=== PATIENT | female | born 1960 | race Caucasian/White ===

== ENCOUNTER → 2019-09-06 | Outpatient (REF) | payer OTHER ==
[~2019-09-06] MED LIST: ATOR1TAB21 PO; CALC-190 PO; GABA-1171 PO; IPRA0.00; LISI-542 PO; METF-838 PO; PANT40TA29 PO; PARO40TA2 PO; QVAR80AE8 INH; RITA10TA PO; [UNRECOGNIZED DRUG - CODE] PO
[2019-11-24 08:29] LABS: FATS NEUTRAL SEE SEPARATE REPORT; FATS TOTAL SEE SEPARATE REPORT; PANCREATIC ELASTASE STOOL SEE SEPARATE REPORT
== END ==
LOC: M LAB REF 12:22
PROVIDERS: ATTEND Physician Assistant Medical
DX: R19.4 Change in bowel habit (principal)

== ENCOUNTER → 2019-09-07 | Outpatient (CLI) | payer OTHER | LOC: M LABSMTC 11:48 | PROVIDERS: ATTEND Anesthesiology | DX: Z01.818 Encounter for other preprocedural examination (principal); Z11.59 Encounter for screening for other viral diseases | CPT/HCPCS: C9803; U0003 ==

== ENCOUNTER → 2020-06-13 | Outpatient (CLI) | payer OTHER ==
[~2020-06-13] MED LIST changes: -LISI-542 PO; +LISI-898 PO
--- NOTE | 2020-06-15 02:31 | ECWPNPC ---
PATIENT NAME: FRANCK GUTIÉRREZ : 1960 GENDER: FEMALE VISIT DATE: 06/13/2020 DISCHARGE DATE: 06/13/20 1404 VISIT LOCKED DATE TIME: PHYSICIAN: DEYSI YO RESOURCE: DEYSI YO REASON FOR APPOINTMENT 1. NECK/BACK HISTORY OF PRESENT ILLNESS GENERAL: 59-YEAR-OLD FEMALE IN FOR INITIAL PAIN CONSULT REGARDING NECK AND BACK PAIN THAT HAS BEEN PRESENT FOR SEVERAL YEARS. PATIENT DENIES MEDICATIONS AND/OR INJECTIONS THAT HELPED IN THE PAST. SHE DOES ADMIT THAT THE PAIN STARTED WHEN SHE WAS ON A RUCK [employer]IL IN THE [employer] WHEN SHE WAS YOUNGER. FALL RISK SCREENING: SCREENING : NO FALLS REPORTED IN THE LAST YEAR. PAIN SCREENING: PATIENT HAS A COMPLAINT OF ACUTE OR CHRONIC PAIN :YES LOCATION OF PAIN:NECK, LOW BACK DOES HABE CONTROL IN FINGER INTO THE RIGTH ARM INTENSITY OF PAIN (SCALE OF 1 TO 10):8 WHAT DOES YOUR PAIN FEEL LIKE:ACHING, THROBBING DURATION:CONTINOUS, CONSTANT, ALL DAY PAIN IS INCREASED BY:ACTIVITIES PAIN IS DECREASED BY:USE OF PAIN MEDICATIONS, OTHERS RESTING NURSING NOTE: - - -. PAIN CENTER INTAKE QUESTIONS: DO YOU HAVE A HISTORY OF MRSA? :NO DO YOU TAKE A BLOOD THINNERS? :NO DO YOU HAVE ANY BLEEDING DISORDERS? :NO ANY NEW NUMBNESS OR WEAKNESS IN YOUR LEGS OR ARMS? :YES PAIN GOES DOWN RIGHT ARM, ALSO PAIN IN RIGHT HIP ANY PACEMAKER,DEFIBRILLATOR, OR DORSAL COLUMN STIMULATOR? :NO DO YOU HAVE ANY RASHES OR OPEN SORES? :NO ARE YOU ALLERGIC TO IV DYE? :NO ARE YOU DIABETIC? :YES TYPE 2 ANY NEW PROBLEMS WITH YOUR MEDICATIONS? :NO HAVE YOU RECEIVED A VACCINE IN THE PAST 30 DAYS? :YES 2ND COVID 06/07/2020 DO YOU PLAN TO RECEIVE A VACCINE IN THE NEXT 21 DAYS? :NO DO YOU NEED ANY PRESCRIPTION? :NO DO YOU TAKE ANY IMMUNOSUPPRESSIVE MEDICATIONS? :NO CURRENT MEDICATIONS TAKING ZOFRAN 4 MG TABLET 1 TABLET ORALLY ONCE A DAY TAKING LISINOPRIL 10 MG TABLET 1 TABLET ORALLY ONCE A DAY TAKING ATORVASTATIN CALCIUM 20 MG TABLET 1 TABLET ORALLY ONCE A DAY TAKING LISINOPRIL 5 MG TABLET TAKE ONE TABLET BY MOUTH EVERY DAY ORAL TAKING METFORMIN HCL ER 500 MG TABLET EXTENDED RELEASE 24 HOUR TAKE THREE TABLETS BY MOUTH EVERY DAY ORAL TAKING METOCLOPRAMIDE HCL 5 MG TABLET TAKE ONE TABLET BY MOUTH THREE TIMES A DAY TAKE 30 MINUTES PRIOR TO MEALS ORAL TAKING OYSTER SHELL CALCIUM/D 500-200 MG-UNIT TABLET TAKE TWO TABLETS BY MOUTH EVERY DAY ORAL TAKING PANTOPRAZOLE SODIUM 40 MG TABLET DELAYED RELEASE TAKE ONE TABLET BY MOUTH EVERY DAY BEFORE FIRST MEAL OF THE DAY ORAL TAKING PAROXETINE HCL 40 MG TABLET TAKE ONE TABLET BY MOUTH EVERY DAY ORAL TAKING VITAMIN B-12 1000 MCG TABLET TAKE ONE TABLET BY MOUTH EVERY DAY ORAL TAKING GABAPENTIN 400 MG CAPSULE TAKE ONE CAPSULE BY MOUTH THREE TIMES A DAY ORAL TAKING METHYLPHENIDATE HCL 10 MG TABLET (SCHEDULE II DRUG) TAKE ONE TABLET BY MOUTH EVERY MORNING AND ONE TABLET EARLY AFTERNOON MAXIMUM DAILY DOSE TWO TABLETS ORAL TAKING ARNUITY ELLIPTA 100 MCG/ACT AEROSOL POWDER BREATH ACTIVATED USE 1 INHALATION ONCE DAILY INHALATION TAKING SENNA 8.6 MG TABLET TAKE TWO TABLETS BY MOUTH EVERY DAY AT BEDTIME STOP IF HAVING DIARRHEA ORAL TAKING FREESTYLE LITE TEST - STRIP TEST GLUCOSE THREE TIMES A DAY IN VITRO TAKING ZONISAMIDE 50 MG CAPSULE 1 CAPSULE ORALLY TWICE A DAY TAKING TYLENOL 8 HOUR 650 MG TABLET EXTENDED RELEASE 2 TABLETS NEEDED ORALLY EVERY 8 HRS NOT-TAKING NEURONTIN 400 MG CAPSULE 1 CAPSULE ORALLY ONCE A DAY PAST MEDICAL HISTORY PAIN IN FOREARM HAND PAIN LUMBOSACRAL RADICULOPATHY CAPAL TUNNEL SYNDROME CHRONIC LOW BACK PAIN MIRGAINE WITHOUT AURA HYPERTENSION TYPE DIABETES ASTHMA COPD MIRGANIE WITH RS ALLERGIES RED ISAAC: DYSPNEA - SIDE EFFECTS ASPIRN: DYSPNEA - SIDE EFFECTS CODINE: DYSPNEA - SIDE EFFECTS PENICILLIN: DYSPNEA - SIDE EFFECTS OXYCODONE: NAUSEA/VOMITING - SIDE EFFECTS SURGICAL HISTORY TONSILLECTOMY 1965 CANCER CERVCAL 1987 CANCER 1977 APPENDIX REMOVED 1979 GALLBADDER 2019 CATARACT RIGHT AND LEFT EYES 2019 ALL TEETH REMOVED 3 YEARS AGO FAMILY HISTORY FATHER: ALIVE MOTHER: ALIVE SON(S): ALIVE DAUGHTER(S): ALIVE 1 BROTHER(S) , 7 SISTER(S) - HEALTHY. 3 SON(S) , 1 DAUGHTER(S) - HEALTHY. SOCIAL HISTORY GENERAL: TOBACCO USE ARE YOU A:NONSMOKER LATEX QUESTIONNAIRE LATEX ALLERGY : HAVE YOU EVER DEVELOPED ANY TYPE OF REACTION AFTER HANDLING LATEX PRODUCTS SUCH RUBBER GLOVES, CONDOMS, DIAPHRAGMS, BALLOONS, SOCKS, OR UNDERWEAR?NO LATEX ALLERGY : HAVE YOU EVER DEVELOPED ANY TYPE OF REACTION DURING OR AFTER DENTAL APPOINTMENT, VAGINAL/RECTAL EXAMINATION, SURGICAL PROCEDURE, OR ANY OTHER EXPOSURE?NO LATEX RISK : HAVE YOU EVER HAD ANY DIFFICULTY BREATHING OR HIVES AFTER EATING OR HANDLING ANY FRUITS, OR VEGETABLES; SUCH KIWI, BANANAS, STONE FRUITS, OR CHESTNUTSNO LATEX RISK : DO YOU HAVE A PREVIOUS PERSONAL HISTORY OF MORE THAN NINE SURGERIES, SPINA BIFIDA, OR REPEATED CATHERIZATIONS? NO LATEX RISK : ARE YOU FREQUENTLY EXPOSED TO LATEX PRODUCTS IN YOUR OCCUPATION?YES DATE ASKED : 06/13/2020 ALCOHOL USE: NO. RECREATIONAL DRUG USE DRUG USE?NO LANGUAGE LANGUAGES SPOKEN:GREEK LEARNING BARRIERS / SPECIAL NEEDS BARRIERS TO LEARNING?NO HEARING IMPAIRED?NO VISION IMPAIRED?YES :CORRECTIVE LENSES COGNITIVELY IMPAIRED?NO READINESS TO LEARN?YES LEARNING PREFERENCES?NO LEARNING CAPABILITIES PRESENT?YES EMOTIONAL BARRIERS?NO SPECIAL DEVICES?NO EMPLOYMENT ASSISTANT NEEDED?NO DOMESTIC VIOLENCE DO YOU FEEL SAFE IN YOUR ENVIRONMENT?YES HOSPITALIZATION/MAJOR DIAGNOSTIC PROCEDURE SEE ABOVE REVIEW OF SYSTEMS CONSTITUTIONAL: ANY RECENT FEVER NO . CHILLS NO . WEIGHT CHANGE OF UNKNOWN REASONS NO . MUSCULOSKELETAL: ANY UNUSUAL JOINT PAIN OR SWELLING NOT MENTIONED NO . SYSTEMIC LUPUS NO . ANY NEUROMUSCULAR DISORDER NOT MENTIONED NO . LYME DISEASE NO . GASTROENTEROLOGY: ANY NEW CHANGE IN BOWEL CONTROL? NO . HISTORY OF LIVER DISORDER NOT MENTIONED NO . HISTORY OF UNUSUAL ABDOMINAL PAIN OR CRAMPING NOT MENTIONED NO . NO CONSTIPATION. GENITOURINARY: ANY NEW CHANGE IN BLADDER CONTROL? NO . ANY RENAL/KIDNEY CONDITON NOT MENTIONED NO . NEUROLOGY: HISTORY OF TBI NOT MENTIONED NO . OTHER NEW NUMBNESS OR PAIN PATTERNS NOT MENTIONED NO . NEW ONSET DIZZINESS OR NEUROLOGICAL CHANGES NOT MENTIONED NO . HISTORY OF SEVERE HEADACHES NOT MENTIONED NO . HISTORY OF STROKE OR NEUROLOGICAL DISORDER NOT MENTIONED NO . CARDIOLOGY: HEART SURGERY NO . CONGESTIVE HEART FAILURE/FLUID OVERLOAD NOT MENTIONED NO . HISTORY OF CHEST PAIN,IRREGULAR HEART BEAT NOT MENTIONED NO . RESPIRATORY: SHORTNESS OF BREATH ON EXERTION, WHEEZES, UNUSUAL COUGH NOT MENTIONED NO . ENDOCRINOLOGY: ADRENAL GLAND OR THYROID DISORDERS NOT MENTIONED NO . UNUSUAL URINATION, DIZZINESS OR LETHARGY NOT MENTIONED NO . VITAL SIGNS WT 149 LBS, HT 5'0, BMI 29.10 INDEX, BP 139/90 MM HG, HR 65 /MIN, RR 18 /MIN, TEMP 97.3 F, OXYGEN SAT % 95%, SAFE IN ENV? (Y/N) YEST.TRIP OLEA. EXAMINATION GENERAL EXAMINATION: GENERALNO ACUTE DISTRESS, WELL NOURISHED AND HYDRATED. PSYCHAPPROPRIATE MOOD AND AFFECT . LUNGS:CLEAR TO AUSCULTATION BILATERALLY, NO WHEEZES, RHONCHI, RALES. HEART:NO MURMURS, REGULAR RATE AND RHYTHM. BACK:DENIES POINT TENDERNESS ALONG LUMBAR SPINE, SURROUNDING SKIN SHOWS NO ERYTHEMA, ECCHYMOSIS, INCREASED WARMTH, AND/OR SKIN ERUPTIONS NOTED. POSITIVE MODIFIED SLR RIGHT SIDE. ASSESSMENTS INTERVERTEBRAL DISC DISORDERS WITH RADICULOPATHY, LUMBOSACRAL REGION - M51.17 (PRIMARY) TREATMENT INTERVERTEBRAL DISC DISORDERS WITH RADICULOPATHY, LUMBOSACRAL REGION NOTES: 59-YEAR-OLD FEMALE IN FOR INITIAL PAIN CONSULT. GIVEN PRESENTING SYMPTOMS AND RESULTS OF PHYSICAL EXAMINATION RECOMMENDED LUMBAR EPIDURAL STEROID INJECTION WITH POSTPROCEDURAL FOLLOW-UP. PATIENT HAS EXPRESSED UNDERSTANDING OF AND WAS IN AGREEMENT WITH TREATMENT PLAN. GIVEN TIME TO ASK QUESTIONS AND EXPRESS CONCERNS. CLINICAL NOTES: PREPROCEDURE AND PROCEDURE INFORMATION PRINTED AND PROVIDED TO PATIENT. PATIENT VERBALIZED AN UNDERSTANDING. RIANA PORTILLO MA. PROCEDURE CODES FA211 ESTABILISHED PATIENT [facility] FACILITY CHARGE DISPOSITION & COMMUNICATION FOLLOW UP POST PROCEDURE (REASON: LUMBAR EPIDURAL STEROID INJECTION WITH IV SEDATION ) ELECTRONICALLY SIGNED BY DOMITILA GONZALES ON 06/14/2020 AT 12:51 PM EDT ADDENDUM: 06/14/2020 12:53 PM DEYSI YO > PATIENT ADMITS TO DOING HOME EXERCISES 3 X WEEKLY THAT WERE PREVIOUSLY PRESCRIBED BY PT. SHE FURTHER STATES THAT SHE USES DICLOFENAC GEL TO HELP ALLEVIATE HER SYMPTOMS. DISCLAIMER : THIS IS A VISIT SUMMARY EXTRACTED FROM THE [employer] CHART. IT IS NOT A COPY OF THE [employer] PROGRESS NOTE. AKIKO
== END ==
LOC: M PAIN 13:00
PROVIDERS: ATTEND Family Medicine
DX: M51.17 Intervertebral disc disorders with radiculopathy, lumbosacral region (principal); G43.909 Migraine, unspecified, not intractable, without status migrainosus; I10 Essential (primary) hypertension; E11.9 Type 2 diabetes mellitus without complications; J44.9 Chronic obstructive pulmonary disease, unspecified; Z79.84 Long term (current) use of oral hypoglycemic drugs; Z79.899 Other long term (current) drug therapy; Z88.6 Allergy status to analgesic agent; Z88.0 Allergy status to penicillin; Z88.5 Allergy status to narcotic agent; Z91.048 Other nonmedicinal substance allergy status

== ENCOUNTER → 2020-06-28 | Outpatient (CLI) | payer OTHER ==
--- NOTE | 2020-07-03 01:05 | ECWPNPC ---
PATIENT NAME: FRANCK GUTIÉRREZ : 1960 GENDER: FEMALE VISIT DATE: 06/28/2020 DISCHARGE DATE: 06/28/20 1317 VISIT LOCKED DATE TIME: PHYSICIAN: KAMILA WHITESIDE MD RESOURCE: KAMILA WHITESIDE MD REASON FOR APPOINTMENT 1. PRESEDATE FOR LUMBAR EPIDURAL STEROID INJECTION HISTORY OF PRESENT ILLNESS DEPRESSION SCREENING: PHQ-2 (2015 EDITION) LITTLE INTEREST OR PLEASURE IN DOING THINGS?NOT AT ALL FEELING DOWN, DEPRESSED, OR HOPELESS?NOT AT ALL TOTAL SCORE0 GENERAL: 59-YEAR-OLD FEMALE PATIENT WITH A HISTORY OF CHRONIC LOW BACK AND MAINLY RIGHT LEG PAIN. THE PATIENT DESCRIBES THE PAIN ACHING, BURNING AND CONTINUOUS WITH A PAIN SCORE RANGING FROM 6-10/10 OVER THE BACK WITH RADIATION. SHE HAS DIFFICULTY PERFORMING ACTIVITIES SUCH CLEANING HER HOUSE, WALKING AROUND AND GOING TO THE MALL. SHE HAS BEEN DOING MEDICATION MANAGEMENT BUT THE PAIN PERSISTS. SHE IS INTERESTED IN DIFFERENT SOLUTIONS. FALL RISK SCREENING: SCREENING : NO FALLS REPORTED IN THE LAST YEAR. PAIN SCREENING: PATIENT HAS A COMPLAINT OF ACUTE OR CHRONIC PAIN :YES LOCATION OF PAIN:LOW BACK, LEFT HIP, RIGHT HIP, LEG(S) RADIATES DOWN RIGHT LEG INTENSITY OF PAIN (SCALE OF 1 TO 10):7 WHAT DOES YOUR PAIN FEEL LIKE:ACHING, BURNING, CONTINOUS, SHOOTING DURATION:CONTINOUS PAIN IS INCREASED BY:OTHERS VACCUUMING, WALKING PAIN IS DECREASED BY:USE OF PAIN MEDICATIONS, OTHERS GABAPENTIN, DIFLOCENAC CREAM NURSING NOTE: -. PAIN CENTER INTAKE QUESTIONS: DO YOU HAVE A HISTORY OF MRSA? :NO DO YOU TAKE A BLOOD THINNERS? :NO DO YOU HAVE ANY BLEEDING DISORDERS? :NO ANY NEW NUMBNESS OR WEAKNESS IN YOUR LEGS OR ARMS? :NO ANY PACEMAKER,DEFIBRILLATOR, OR DORSAL COLUMN STIMULATOR? :NO DO YOU HAVE ANY RASHES OR OPEN SORES? :NO ARE YOU ALLERGIC TO IV DYE? :NO ARE YOU DIABETIC? :YES ANY NEW PROBLEMS WITH YOUR MEDICATIONS? :NO HAVE YOU RECEIVED A VACCINE IN THE PAST 30 DAYS? :YES IF SO WHAT VACCINE AND WHEN? 2ND COVID VACCINE 06/07/2020 DO YOU PLAN TO RECEIVE A VACCINE IN THE NEXT 21 DAYS? :NO DO YOU NEED ANY PRESCRIPTION? :NO DO YOU TAKE ANY IMMUNOSUPPRESSIVE MEDICATIONS? :NO DO YOU HAVE ANY KIDNEY OR LIVER DISEASE? :NO IS THERE A CHANCE YOU COULD BE ? :NO ARE YOU BREAST FEEDING? :NO CURRENT MEDICATIONS TAKING ZOFRAN 4 MG TABLET 1 TABLET ORALLY ONCE A DAY TAKING LISINOPRIL 10 MG TABLET 1 TABLET ORALLY ONCE A DAY TAKING ATORVASTATIN CALCIUM 20 MG TABLET 1 TABLET ORALLY ONCE A DAY TAKING LISINOPRIL 5 MG TABLET TAKE ONE TABLET BY MOUTH EVERY DAY ORAL TAKING METFORMIN HCL ER 500 MG TABLET EXTENDED RELEASE 24 HOUR TAKE THREE TABLETS BY MOUTH EVERY DAY ORAL TAKING METOCLOPRAMIDE HCL 5 MG TABLET TAKE ONE TABLET BY MOUTH THREE TIMES A DAY TAKE 30 MINUTES PRIOR TO MEALS ORAL TAKING OYSTER SHELL CALCIUM/D 500-200 MG-UNIT TABLET TAKE TWO TABLETS BY MOUTH EVERY DAY ORAL TAKING PANTOPRAZOLE SODIUM 40 MG TABLET DELAYED RELEASE TAKE ONE TABLET BY MOUTH EVERY DAY BEFORE FIRST MEAL OF THE DAY ORAL TAKING PAROXETINE HCL 40 MG TABLET TAKE ONE TABLET BY MOUTH EVERY DAY ORAL TAKING VITAMIN B-12 1000 MCG TABLET TAKE ONE TABLET BY MOUTH EVERY DAY ORAL TAKING GABAPENTIN 400 MG CAPSULE TAKE ONE CAPSULE BY MOUTH THREE TIMES A DAY ORAL TAKING METHYLPHENIDATE HCL 10 MG TABLET (SCHEDULE II DRUG) TAKE ONE TABLET BY MOUTH EVERY MORNING AND ONE TABLET EARLY AFTERNOON MAXIMUM DAILY DOSE TWO TABLETS ORAL TAKING ARNUITY ELLIPTA 100 MCG/ACT AEROSOL POWDER BREATH ACTIVATED USE 1 INHALATION ONCE DAILY INHALATION TAKING SENNA 8.6 MG TABLET TAKE TWO TABLETS BY MOUTH EVERY DAY AT BEDTIME STOP IF HAVING DIARRHEA ORAL TAKING FREESTYLE LITE TEST - STRIP TEST GLUCOSE THREE TIMES A DAY IN VITRO TAKING ZONISAMIDE 50 MG CAPSULE 1 CAPSULE ORALLY TWICE A DAY TAKING TYLENOL 8 HOUR 650 MG TABLET EXTENDED RELEASE 2 TABLETS NEEDED ORALLY EVERY 8 HRS TAKING LORATADINE 10 MG TABLET 1 TABLET ORALLY ONCE A DAY NOT-TAKING NEURONTIN 400 MG CAPSULE 1 CAPSULE ORALLY ONCE A DAY MEDICATION LIST REVIEWED AND RECONCILED WITH THE PATIENT PAST MEDICAL HISTORY PAIN IN FOREARM HAND PAIN LUMBOSACRAL RADICULOPATHY CAPAL TUNNEL SYNDROME CHRONIC LOW BACK PAIN MIRGAINE WITHOUT AURA HYPERTENSION TYPE DIABETES ASTHMA COPD MIRGANIE WITH RS ALLERGIES RED DYE : DYSPNEA - SIDE EFFECTS ASPIRN: DYSPNEA - SIDE EFFECTS CODINE: DYSPNEA - SIDE EFFECTS PENICILLIN: DYSPNEA - SIDE EFFECTS OXYCODONE: NAUSEA/VOMITING - SIDE EFFECTS SOCIAL HISTORY GENERAL: TOBACCO USE ARE YOU A:NONSMOKER LATEX QUESTIONNAIRE LATEX ALLERGY : HAVE YOU EVER DEVELOPED ANY TYPE OF REACTION AFTER HANDLING LATEX PRODUCTS SUCH RUBBER GLOVES, CONDOMS, DIAPHRAGMS, BALLOONS, SOCKS, OR UNDERWEAR?NO LATEX ALLERGY : HAVE YOU EVER DEVELOPED ANY TYPE OF REACTION DURING OR AFTER DENTAL APPOINTMENT, VAGINAL/RECTAL EXAMINATION, SURGICAL PROCEDURE, OR ANY OTHER EXPOSURE?NO LATEX RISK : HAVE YOU EVER HAD ANY DIFFICULTY BREATHING OR HIVES AFTER EATING OR HANDLING ANY FRUITS, OR VEGETABLES; SUCH KIWI, BANANAS, STONE FRUITS, OR CHESTNUTSNO LATEX RISK : DO YOU HAVE A PREVIOUS PERSONAL HISTORY OF MORE THAN NINE SURGERIES, SPINA BIFIDA, OR REPEATED CATHERIZATIONS? NO LATEX RISK : ARE YOU FREQUENTLY EXPOSED TO LATEX PRODUCTS IN YOUR OCCUPATION?YES DATE ASKED : 06/28/2020 ALCOHOL USE: NO. RECREATIONAL DRUG USE DRUG USE?NO LANGUAGE LANGUAGES SPOKEN:GIBRALTARIAN LEARNING BARRIERS / SPECIAL NEEDS BARRIERS TO LEARNING?NO HEARING IMPAIRED?NO VISION IMPAIRED?YES COGNITIVELY IMPAIRED?NO :CORRECTIVE LENSES READINESS TO LEARN?YES LEARNING PREFERENCES?NO LEARNING CAPABILITIES PRESENT?YES EMOTIONAL BARRIERS?NO SPECIAL DEVICES?NO SCHOOL SOCIAL WORKER NEEDED?NO DOMESTIC VIOLENCE DO YOU FEEL SAFE IN YOUR ENVIRONMENT?YES REVIEW OF SYSTEMS GLAUCOMA: NOTHYROID DISEASE: NOHYPERTENSION: NOHEART DISEASE: NOLUNG DISEASE: NODIABETES: NOGI DISEASE: NO LIVER DISEASE: NO KIDNEY DISEASE: NOSTERIOD USE: NONEUROLOGICAL DISEASE: NOBACK PROBLEMS: YES, PAINEXTREMITIES: YES, PAINGENITOURINARY: NOBLEEDING DISORDER: NOASA CLASS: IIAIRWAY CLASS: II. VITAL SIGNS WT 151.6 LBS, HT 5'0, BMI 29.60 INDEX, BP 134/65 MM HG, HR 73 /MIN, RR 18 /MIN, TEMP 97.2 F, OXYGEN SAT % 95%, SAFE IN ENV? (Y/N) NHUNG MURRAY INITIALS MD 11:38, REVIEWED BY: Aaron BRAVO RN. EXAMINATION GENERAL EXAMINATION: THE PATIENT IS ALERT, ORIENTED TIMES THREE AND COOPERATIVE. LUNGS ARE CLEAR TO AUSCULTATION. HEART SHOWS REGULAR RHYTHM, NO MURMURS AND NO GALLOPS. THE RIGHT LEG IS WEAKER THAN THE LEFT LEG ON FLEXION AND EXTENSION. STRAIGHT LEG RAISE IS POSITIVE FOR RADICULOPATHY AT 35 DEGREES. LUMBAR MRI DATED 03/14/2020 SHOWS A RIGHT BULGING DISC AT L4-L5 WITH SEVERE RIGHT FORAMINAL STENOSIS. ASSESSMENTS INTERVERTEBRAL DISC DISORDERS WITH RADICULOPATHY, LUMBAR REGION - M51.16 (PRIMARY) TREATMENT INTERVERTEBRAL DISC DISORDERS WITH RADICULOPATHY, LUMBAR REGION MEDICATION: FENTANYL CITRATE 25MCG IV (ORDERED FOR 07/29/2020)JENNIFER CAMPOS 07/01/2020 12:56:47 PM > VERIFIED RAMON SHARP 07/01/2020 1:52:31 PM > ADMINISTERED AT 1336. TOTAL FANTANYL GIVEN: 25 MCG. MED: VERSED 1MG IV MIDAZOLAM (ORDERED FOR 07/29/2020)JENNIFER CAMPOS 07/01/2020 12:56:28 PM > VERIFIED JENNIFER CAMPOS 07/01/2020 12:56:28 PM > VERIFIED WILBERTO DUNN 07/01/2020 1:27:18 PM > SECOND DOSE ORDERED, VERIFIED WITH RAMON PHELPS 07/01/2020 1:53:40 PM > 1ST DOSE GIVEN @ 1325. 2ND DOSE GIVEN @ 1327. TOTAL VERSED GIVEN: 2 MG. OXYGEN AT 2 LITERS PER NASAL CANNULA (ORDERED FOR 07/29/2020)SHRADDHA KING 07/01/2020 1:33:08 PM > 2L NC APPLIED 1317. SHRADDHA KING 07/01/2020 1:45:27 PM > 2L NC DISCONTINUED @ 1340 IV LACTATED RINGER'S WIDE OPEN (ORDERED FOR 07/29/2020)RAMON SHARP 07/01/2020 12:49:50 PM > 22 GAUGE INSERTED IN LEFT HAND ON 1ST ATTEMPT. SITE CLEAR, FLUSHING WITHOUT DIFFICULTY. LR STARTED PER ORDER. SHRADDHA KING 07/01/2020 1:46:00 PM > IVF DISCONTINUED @ 1345 SHRADDHA KIGN 07/01/2020 1:46:13 PM > TOTAL FLUID 350 CC MEDICATION: PAIN ZOFRAN 4MG/2ML IV ONDANSETRON (ORDERED FOR 07/29/2020)JENNIFER CAMPOS 07/01/2020 12:56:07 PM > VERIFIED RAMON SHARP 07/01/2020 1:06:06 PM > ADMINISTERED. MED: PAIN BENADRYL 25MG IV DIPHENHYDRAMINE (ORDERED FOR 07/29/2020)JENNIFER CAMPOS 07/01/2020 12:55:35 PM > VERIFIED RAMON SHARP 07/01/2020 1:06:47 PM > ADMINISTERED. CLINICAL NOTES: I DISCUSSED ALTERNATIVES WITH MS. GUTIÉRREZ. WE AGREE ON PERFORMING A RIGHT INTERLAMINAR LUMBAR EPIDURAL STEROID INJECTION L4-L5 WITH IV SEDATION DUE TO ANXIETY AND DISCOMFORT ASSOCIATED WITH THE PROCEDURE. DEPENDING ON THE RESULTS, WE CAN CONSIDER A RIGHT TRANSFORAMINAL EPIDURAL STEROID INJECTION L4-L5, L5-S1. THE PATIENT REPORTS UNDERSTANDING AND AGREES WITH THE PLAN. I, WILBERTO DUNN, DOCUMENTED THE ABOVE INFORMATION ACTING A SCRIBE FOR DR. WHITESIDE. I HAVE REVIEWED THE ABOVE DOCUMENT, WRITTEN BY WILBERTO DUNN, WORKFORCE ADVISOR, AND I VERIFY THAT IT IS ACCURATE. PROCEDURE CODES FA211 ESTABILISHED PATIENT [facility] CHARGE [id number] OFFICE/OUTPATIENT VISIT EST DISPOSITION & COMMUNICATION FOLLOW UP OKAY TO BOOK (REASON: LUMBAR EPIDURAL STEROID INJECTION) ELECTRONICALLY SIGNED BY KAMILA WHITESIDE MD, ON 07/02/2020 AT 05:05 PM EDT DISCLAIMER : THIS IS A VISIT SUMMARY EXTRACTED FROM THE [employer] CHART. IT IS NOT A COPY OF THE [employer] PROGRESS NOTE. AKIKO
== END ==
LOC: M PAIN 11:15
PROVIDERS: ATTEND Anesthesiology
DX: M51.16 Intervertebral disc disorders with radiculopathy, lumbar region (principal); G89.29 Other chronic pain; E11.9 Type 2 diabetes mellitus without complications; G43.909 Migraine, unspecified, not intractable, without status migrainosus; J44.9 Chronic obstructive pulmonary disease, unspecified; Z88.0 Allergy status to penicillin; Z88.5 Allergy status to narcotic agent; Z88.6 Allergy status to analgesic agent; Z91.02 Food additives allergy status; Z79.51 Long term (current) use of inhaled steroids; Z79.84 Long term (current) use of oral hypoglycemic drugs; Z79.899 Other long term (current) drug therapy

== ENCOUNTER → 2020-07-01 | Outpatient (CLI) | payer OTHER ==
[~2020-07-01] MED LIST changes: +ISOVUE-M 300 61% 15ML VIAL As Ordered ONE; +LIDOCAINE 1% SDV 30ML VIAL As Ordered ONE; +MIDAZOLAM INJ 2MG/2ML VIAL (J2250 PER 1MG) As Ordered ONE; +ONDANSETRON 4MG/2ML VIAL As Ordered ONE; +diphenhydrAMINE 50MG/ML VIAL (J1200) As Ordered ONE; +fentaNYL 100 MCG/2 ML INJECTION (J3010) As Ordered ONE; +methylPREDNISolone SUSP 40MG/ML 1ML VIAL (DEPO MEDROL) As Ordered ONE
--- NOTE | 2020-07-01 19:11 | REP ---
INDICATION: LESI. COMPARISON: None. TECHNIQUE: Two views lower lumbar spine. FINDINGS: A needle is seen at the L4-5 level. A small amount of contrast is injected. IMPRESSION: 15 seconds fluoroscopy time utilized. <Electronically signed by Adis Deng > 07/01/20 [id number]
--- NOTE | 2020-07-03 01:04 | ECWPNPC ---
PATIENT NAME: FRANCK GUTIÉRREZ : 1960 GENDER: FEMALE VISIT DATE: 07/01/2020 DISCHARGE DATE: 07/01/20 1412 VISIT LOCKED DATE TIME: PHYSICIAN: KAMILA WHITESIDE MD RESOURCE: KAMILA WHITESIDE MD REASON FOR APPOINTMENT 1. LUMBAR EPIDURAL STEROID INJECTION WITH IV SEDATION HISTORY OF PRESENT ILLNESS GENERAL: -. FALL RISK SCREENING: SCREENING : NO FALLS REPORTED IN THE LAST YEAR. PAIN SCREENING: PATIENT HAS A COMPLAINT OF ACUTE OR CHRONIC PAIN :YES LOCATION OF PAIN:LOW BACK, LEG(S) INTENSITY OF PAIN (SCALE OF 1 TO 10):7 WHAT DOES YOUR PAIN FEEL LIKE:ACHING, BURNING, SHOOTING DURATION:CONTINOUS, CONSTANT PAIN IS INCREASED BY:ACTIVITIES PAIN IS DECREASED BY:USE OF PAIN MEDICATIONS NURSING NOTE: -. PAIN CENTER INTAKE QUESTIONS: DO YOU HAVE A HISTORY OF MRSA? :NO DO YOU TAKE A BLOOD THINNERS? :NO DO YOU HAVE ANY BLEEDING DISORDERS? :NO ANY NEW NUMBNESS OR WEAKNESS IN YOUR LEGS OR ARMS? :NO ANY PACEMAKER,DEFIBRILLATOR, OR DORSAL COLUMN STIMULATOR? :NO DO YOU HAVE ANY RASHES OR OPEN SORES? :NO ARE YOU ALLERGIC TO IV DYE? :NO ARE YOU DIABETIC? :YES ANY NEW PROBLEMS WITH YOUR MEDICATIONS? :NO HAVE YOU RECEIVED A VACCINE IN THE PAST 30 DAYS? :YES IF SO WHAT VACCINE AND WHEN? #2 COVID VACCINE 06/07/20 DO YOU PLAN TO RECEIVE A VACCINE IN THE NEXT 21 DAYS? :NO DO YOU TAKE ANY IMMUNOSUPPRESSIVE MEDICATIONS? :NO ANY HISTORY OF SEIZURES? :NO ANY HISTORY OF CARDIAC ISSUES OR EVENTS? :NO DO YOU HAVE ANY KIDNEY OR LIVER DISEASE? :NO DO YOU HAVE SLEEP APNEA? :NO ANY RECENT HEAD INJURY? :NO DO YOU HAVE ANY NEW INFECTIONS? :NO IS THERE A CHANCE YOU COULD BE ? :NO ARE YOU BREAST FEEDING? :NO WHEN DID YOU LAST EAT? : 07/01/20 0500 WHEN DID YOU LAST DRINK? : 07/01/20 1000 WHAT DID YOU LAST DRINK? : BOGDAN OVERTON NAME OF PERSON DRIVING YOU HOME? : DO YOU HAVE ANY OTHER QUESTIONS OR CONCERNS? : - CURRENT MEDICATIONS TAKING ZOFRAN 4 MG TABLET 1 TABLET ORALLY ONCE A DAY TAKING LISINOPRIL 10 MG TABLET 1 TABLET ORALLY ONCE A DAY TAKING ATORVASTATIN CALCIUM 20 MG TABLET 1 TABLET ORALLY ONCE A DAY TAKING LISINOPRIL 5 MG TABLET TAKE ONE TABLET BY MOUTH EVERY DAY ORAL TAKING METFORMIN HCL ER 500 MG TABLET EXTENDED RELEASE 24 HOUR TAKE THREE TABLETS BY MOUTH EVERY DAY ORAL TAKING METOCLOPRAMIDE HCL 5 MG TABLET TAKE ONE TABLET BY MOUTH THREE TIMES A DAY TAKE 30 MINUTES PRIOR TO MEALS ORAL TAKING OYSTER SHELL CALCIUM/D 500-200 MG-UNIT TABLET TAKE TWO TABLETS BY MOUTH EVERY DAY ORAL TAKING PANTOPRAZOLE SODIUM 40 MG TABLET DELAYED RELEASE TAKE ONE TABLET BY MOUTH EVERY DAY BEFORE FIRST MEAL OF THE DAY ORAL TAKING PAROXETINE HCL 40 MG TABLET TAKE ONE TABLET BY MOUTH EVERY DAY ORAL TAKING VITAMIN B-12 1000 MCG TABLET TAKE ONE TABLET BY MOUTH EVERY DAY ORAL TAKING GABAPENTIN 400 MG CAPSULE TAKE ONE CAPSULE BY MOUTH THREE TIMES A DAY ORAL TAKING METHYLPHENIDATE HCL 10 MG TABLET (SCHEDULE II DRUG) TAKE ONE TABLET BY MOUTH EVERY MORNING AND ONE TABLET EARLY AFTERNOON MAXIMUM DAILY DOSE TWO TABLETS ORAL TAKING ARNUITY ELLIPTA 100 MCG/ACT AEROSOL POWDER BREATH ACTIVATED USE 1 INHALATION ONCE DAILY INHALATION TAKING SENNA 8.6 MG TABLET TAKE TWO TABLETS BY MOUTH EVERY DAY AT BEDTIME STOP IF HAVING DIARRHEA ORAL TAKING FREESTYLE LITE TEST - STRIP TEST GLUCOSE THREE TIMES A DAY IN VITRO TAKING ZONISAMIDE 50 MG CAPSULE 1 CAPSULE ORALLY TWICE A DAY TAKING TYLENOL 8 HOUR 650 MG TABLET EXTENDED RELEASE 2 TABLETS NEEDED ORALLY EVERY 8 HRS TAKING LORATADINE 10 MG TABLET 1 TABLET ORALLY ONCE A DAY TAKING VITAMIN D (ERGOCALCIFEROL) 50 MCG (2000 UT) CAPSULE 1 CAPSULE ORALLY ONCE A DAY TAKING LORAZEPAM 0.5 MG TABLET 1 TABLET AT BEDTIME NEEDED ORALLY ONCE A DAY TAKING DUONEB 0.5-2.5 (3) MG/3ML SOLUTION 3 ML NEEDED INHALATION EVERY 6 HRS TAKING DICLOFENAC SODIUM 1 % GEL DIRECTED EXTERNALLY TAKING EPIPEN 0.3 MG/0.3ML (1:1000) DEVICE DIRECTED INTRAMUSCULAR NOT-TAKING NEURONTIN 400 MG CAPSULE 1 CAPSULE ORALLY ONCE A DAY MEDICATION LIST REVIEWED AND RECONCILED WITH THE PATIENT PAST MEDICAL HISTORY PAIN IN FOREARM HAND PAIN LUMBOSACRAL RADICULOPATHY CAPAL TUNNEL SYNDROME CHRONIC LOW BACK PAIN MIRGAINE WITHOUT AURA HYPERTENSION TYPE DIABETES ASTHMA COPD MIRGANIE WITH RS PANIC DISORDER ALLERGIES RED DYE : DYSPNEA - SIDE EFFECTS ASPIRN: DYSPNEA - SIDE EFFECTS CODINE: DYSPNEA - SIDE EFFECTS PENICILLIN: DYSPNEA - SIDE EFFECTS OXYCODONE: NAUSEA/VOMITING - SIDE EFFECTS BEES: ANAPHYLAXIS - ALLERGY SOCIAL HISTORY GENERAL: TOBACCO USE ARE YOU A:NONSMOKER LATEX QUESTIONNAIRE LATEX ALLERGY : HAVE YOU EVER DEVELOPED ANY TYPE OF REACTION AFTER HANDLING LATEX PRODUCTS SUCH RUBBER GLOVES, CONDOMS, DIAPHRAGMS, BALLOONS, SOCKS, OR UNDERWEAR?NO LATEX ALLERGY : HAVE YOU EVER DEVELOPED ANY TYPE OF REACTION DURING OR AFTER DENTAL APPOINTMENT, VAGINAL/RECTAL EXAMINATION, SURGICAL PROCEDURE, OR ANY OTHER EXPOSURE?NO DATE ASKED : 06/28/2020 LATEX RISK : HAVE YOU EVER HAD ANY DIFFICULTY BREATHING OR HIVES AFTER EATING OR HANDLING ANY FRUITS, OR VEGETABLES; SUCH KIWI, BANANAS, STONE FRUITS, OR CHESTNUTSNO LATEX RISK : DO YOU HAVE A PREVIOUS PERSONAL HISTORY OF MORE THAN NINE SURGERIES, SPINA BIFIDA, OR REPEATED CATHERIZATIONS? NO LATEX RISK : ARE YOU FREQUENTLY EXPOSED TO LATEX PRODUCTS IN YOUR OCCUPATION?YES ALCOHOL USE: NO. RECREATIONAL DRUG USE DRUG USE?NO LANGUAGE LANGUAGES SPOKEN:SERBIAN LEARNING BARRIERS / SPECIAL NEEDS BARRIERS TO LEARNING?NO HEARING IMPAIRED?NO VISION IMPAIRED?YES COGNITIVELY IMPAIRED?NO :CORRECTIVE LENSES READINESS TO LEARN?YES LEARNING PREFERENCES?NO LEARNING CAPABILITIES PRESENT?YES EMOTIONAL BARRIERS?NO SPECIAL DEVICES?NO HARDWARE ASSEMBLER NEEDED?NO DOMESTIC VIOLENCE DO YOU FEEL SAFE IN YOUR ENVIRONMENT?YES VITAL SIGNS WT 149 LBS, HT 5'0, BMI 29.10 INDEX, BP 123/89 MM HG, HR 77 /MIN, RR 16 /MIN, TEMP 95.7 F, OXYGEN SAT % 98, BLOOD GLUCOSE LEVEL 120 @ HOME, SAFE IN ENV? (Y/N) Y, REVIEWED BY: AVILA. EXAMINATION GENERAL: A HISTORY AND PHYSICAL EXAM ON THE PATIENT WAS DONE ON 06/28/2020(DATE OF ORIGINAL ASSESSMENT) IN PREPARATION OF SURGERY/PROCEDURE. I HAVE NOW REASSESSED THIS PATIENT'S HEALTH STATUS AND PERFORMED AN UPDATED EXAM TODAY. ALL CHANGES IN THE PATIENT'S HISTORY, PHYSICAL EXAM, PRE-EXISTING CONDITONS, AND INDICATIONS/CONTRAINDICATIONS TO THE PLANNED PROCEDURE AND ANESTHESIA ARE DOCUMENTED AND EVALUATED BELOW. I ATTEST TO THE ADEQUACY AND APPROPRIATENESS OF MY ASSESSMENT, AND CONFIRM THE NECESSITY FOR THE PLANNED PROCEDURE. THE PATIENT IS ALERT, ORIENTED TIMES THREE AND COOPERATIVE. LUNGS ARE CLEAR TO AUSCULTATION. HEART SHOWS REGULAR RHYTHM, NO MURMURS AND NO GALLOPS. ASSESSMENTS INTERVERTEBRAL DISC DISORDERS WITH RADICULOPATHY, LUMBAR REGION - M51.16 (PRIMARY) TREATMENT INTERVERTEBRAL DISC DISORDERS WITH RADICULOPATHY, LUMBAR REGION [facility] FLUORO GUIDE SPINE INJECTION (PAIN)[id number] COMPLETION OF PROCEDURAL VISIT WHEN MEETS CRITERIA MEDICATION: FENTANYL CITRATE 25MCG IVMONJENNIFER PARISI 07/01/2020 12:56:47 PM > VERIFIED RAMON SHARP 07/01/2020 1:52:31 PM > ADMINISTERED AT 1336. TOTAL FANTANYL GIVEN: 25 MCG. MED: VERSED 1MG IV MIDAZOLAMMONJENNIFER PARISI 07/01/2020 12:56:28 PM > VERIFIED ANDRESJENNIFER PARISI 07/01/2020 12:56:28 PM > VERIFIED DILEONAPEDRO PABLO MONTIELWILBERTO 07/01/2020 1:27:18 PM > SECOND DOSE ORDERED, VERIFIED WITH RAMON PHELPS 07/01/2020 1:53:40 PM > 1ST DOSE GIVEN @ 1325. 2ND DOSE GIVEN @ 1327. TOTAL VERSED GIVEN: 2 MG. OXYGEN AT 2 LITERS PER NASAL CANNULASHRADDHA KING 07/01/2020 1:33:08 PM > 2L NC APPLIED 1317. SHRADDHA KING 07/01/2020 1:45:27 PM > 2L NC DISCONTINUED @ 1340 IV LACTATED RINGER'S WIDE OPENSYLVERRAMON 07/01/2020 12:49:50 PM > 22 GAUGE INSERTED IN LEFT HAND ON 1ST ATTEMPT. SITE CLEAR, FLUSHING WITHOUT DIFFICULTY. LR STARTED PER ORDER. SHRADDHA KING 07/01/2020 1:46:00 PM > IVF DISCONTINUED @ 1345 SHRADDHA KING 07/01/2020 1:46:13 PM > TOTAL FLUID 350 CC MEDICATION: PAIN ZOFRAN 4MG/2ML IV ONDANSETRONMONJENNIFER PARISI 07/01/2020 12:56:07 PM > VERIFIED RAMON SHARP 07/01/2020 1:06:06 PM > ADMINISTERED. MED: PAIN BENADRYL 25MG IV DIPHENHYDRAMINEMONJENNIFER PARISI 07/01/2020 12:55:35 PM > VERIFIED RAMON SHARP 07/01/2020 1:06:47 PM > ADMINISTERED. OTHERS NOTES: PAT DONE 06/28/20 EM. PROCEDURES PAIN NURSING RECORD PROCEDURE IN ROOM 1315, PHYSICIAN IN ROOM 1324, START 1329, FINISH 1337, PHYSICIAN OUT OF ROOM 1338, OUT OF ROOM 1345, ECG NORMAL SINUS, PATIENT SHIELDED YES, SAFETY STRAP YES, PREP BETADINE Ran KING RN, DRESSING TEGADERM DR. WHITESIDE LOC: 1. ALERT, ORIENTED, SHRADDHA KING 07/01/2020 1:30:22 PM > RESP: 1. REGULAR, NO DYSPNEA, SHRADDHA KING 07/01/2020 1:30:25 PM > COLOR: 1. PINK, SHRADDHA KING 07/01/2020 1:30:28 PM > SKIN: 1. WARM, DRY, SHRADDHA KING 07/01/2020 1:30:32 PM > POSITION: 1. PRONE, SHRADDHA KING 07/01/2020 1:30:36 PM > VITALS: 153/81, 65, 16, 99% SHRADDHA KING 07/01/2020 1:18:13 PM > 163/81, 64, 16, 100% JAIME KINGBETH 07/01/2020 1:20:46 PM > , 159/90, 65, 16, 100% JAIME KINGBETH 07/01/2020 1:25:19 PM > , 144/84, 64, 16, 100%, JAIME KINGBETH 07/01/2020 1:30:54 PM > 135/83, 63, 16, 100%, JAIME KINGBETH 07/01/2020 1:35:37 PM > 140/75, 62, 16, 96%, JAIME KINGBETH 07/01/2020 1:44:20 PM > 120/83, 69, 16, 94%, JAIME KINGBETH 07/01/2020 2:00:55 PM > NOTES Ran KING RN, SHRADDHA KING 07/01/2020 1:31:03 PM > FERNANDO HERNANDEZ RN, ELIZABETH 07/01/2020 1:32:17 PM > COMPLETION OF PROCEDURE APPOINTMENT: POST PAIN 0, DRESSING SITE DRY AND INTACT, IV DISCONTINUED, SITE CLEAR, CATHETER INTACT, GAIT WHEELCHAIR, TEACHING COMPLETED, PATIENT ACKNOWLEDGES UNDERSTANDING YES, PROCEDURE APPOINTMENT COMPLETED AT 1414 PRE PROCEDURE DIAGNOSIS LUMBAR DISC DISORDER WITH RADICULOPATHY POST PROCEDURE DIAGNOSIS LUMBAR DISC DISORDER WITH RADICULOPATHY PROCEDURE LUMBAR EPIDURAL STEROID INJECTION UNDER FLUOROSCOPIC GUIDANCE SURGEON DR. KAMILA WHITESIDE CRIME DATA SPECIALIST NONE ANESTHESIA LOCAL WITH IV SEDATION PRE PROCEDURE NOTE THE PATIENT HAS A HISTORY OF CHRONIC LOW BACK PAIN. I EVALUATED THE PATIENT AND REVIEWED THE CHART. I WENT OVER THE RISKS, ALTERNATIVES, AND BENEFITS ASSOCIATED WITH THIS PROCEDURE. THE PATIENT WOULD LIKE TO PROCEED AND GIVE CONSENT TO PERFORMED THE PROCEDURE. THE PATIENT WOULD LIKE TO MOVE FORWARD WITH IV SEDATION DUE TO ANXIETY AND DISCOMFORT ASSOCIATED WITH THE PROCEDURE. THE PATIENT DENIES UNEXPLAINABLE WEIGHT LOSS, FEVER, CHILLS, OR NEW CHANGES IN URINARY OR BOWEL CONTROL. THE PATIENT IS COVID-19 NEGATIVE DESCRIPTION OF PROCEDURE THE PATIENT WAS BROUGHT TO THE PROCEDURE ROOM AND PLACED IN THE PRONE POSITION. THE LUMBOSACRAL AREA WAS CLEANED WITH BETADINE SOLUTION AND DRAPED ASEPTICALLY. THE PROCEDURE WAS DONE UNDER STERILE CONDITIONS. A TIMEOUT WAS PERFORMED WHERE THE CONSENTED SITE WAS VERIFIED WITH EVERYONE IN THE ROOM. UNDER FLUOROSCOPIC GUIDANCE, THE TARGET POINT WAS SELECTED AT THE INTERLAMINAR LEVEL OF L4-L5. I CONFIRMED AGAIN THE SITE OF TARGET. LIDOCAINE WAS USED TO NUMB THE SKIN AND THE SUBCUTANEOUS TISSUE BELOW IT. EPIDURAL TUOHY NEEDLE, 17-GAUGE, WAS ADVANCED UNDER FLUOROSCOPIC GUIDANCE AND FOLLOWING PATIENT FEEDBACK UNTIL THE EPIDURAL SPACE WAS REACHED 7 CM DEEP INTO THE SKIN BY THE LOSS OF RESISTANCE TECHNIQUE. ISOVUE-M DYE 30%, 0.25 ML, WAS INJECTED SHOWING ADEQUATE SPREAD OF THE DYE. THEN, A SOLUTION OF 3 ML OF NORMAL SALINE WITH DEPO-MEDROL 40 MG WAS INJECTED SLOWLY FOLLOWING PATIENT FEEDBACK. THE MEDICATIONS WERE VERIFIED WITH THE NURSE. THERE WAS NO EVIDENCE OF BLOOD, PARESTHESIA OR CEREBROSPINAL FLUID DURING THE PROCEDURE. THE PATIENT WAS SENT TO THE RECOVERY ROOM. THE PATIENT WAS MOVING THE EXTREMITIES AND DOING WELL. THERE WERE NO COMPLICATIONS DURING THE PROCEDURE. ESTIMATED BLOOD LOSS WAS LESS THAN 5 ML. FLUOROSCOPY TIME WAS 15 SECONDS. THE PATIENT RECEIVED A TOTAL OF VERSED 2 MG AND FENTANYL 25 MCG IV IN DIVIDED DOSES. VCPD-KS-QRSX START TIME WAS 1325. QODS-PA-UFUC END TIME WAS 1338. TOTAL FCCB-VT-KOPO TIME WAS 13 MINUTES. POST PROCEDURE NOTE THE PATIENT WILL BE SEEN IN A FOLLOW UP IN THE NEXT FEW WEEKS. I AM LOOKING FOR LONG LASTING RELIEF FOR THE PATIENT WITH THIS INTERVENTION. INSTRUCTIONS WERE GIVEN, QUESTIONS WERE ANSWERED, AND THE PATIENT EXPRESSED UNDERSTANDING AND AGREES WITH THE PLAN. I, WILBERTO DUNN, DOCUMENTED THE ABOVE INFORMATION ACTING A SCRIBE FOR DR. WHITESIDE. I HAVE REVIEWED THE ABOVE DOCUMENT, WRITTEN BY WILBERTO DUNN, WELDER FITTER, AND I VERIFY THAT IT IS ACCURATE PROCEDURE CODES 13850 LUMBAR/SACRAL W/ IMAGING 95024 MOD SED SAME PHYS/QHP 5/>YRS DISPOSITION & COMMUNICATION FOLLOW UP FOLLOW UP WITH TRANSFORMER SHOP SUPERVISOR (REASON: POST LUMBAR EPIDURAL STEROID INJECTION) ELECTRONICALLY SIGNED BY KAMILA WHITESIDE MD, MD ON 07/02/2020 AT 05:25 PM EDT DISCLAIMER : THIS IS A VISIT SUMMARY EXTRACTED FROM THE [employer] CHART. IT IS NOT A COPY OF THE [employer] PROGRESS NOTE. KAIKO
== END ==
LOC: M PAIN 12:30
PROVIDERS: ATTEND Anesthesiology
DX: M51.16 Intervertebral disc disorders with radiculopathy, lumbar region (principal); E11.9 Type 2 diabetes mellitus without complications; G43.909 Migraine, unspecified, not intractable, without status migrainosus; J44.9 Chronic obstructive pulmonary disease, unspecified; Z86.59 Personal history of other mental and behavioral disorders; Z88.0 Allergy status to penicillin; Z88.5 Allergy status to narcotic agent; Z88.6 Allergy status to analgesic agent; Z91.02 Food additives allergy status; Z91.030 Bee allergy status; Z79.51 Long term (current) use of inhaled steroids; Z79.84 Long term (current) use of oral hypoglycemic drugs; Z79.899 Other long term (current) drug therapy
CPT/HCPCS: 62323; 99152; J1030; J1200; J2250; J2405; J3010; Q9967

== ENCOUNTER → 2020-07-19 | Outpatient (CLI) | payer OTHER ==
[~2020-07-19] MED LIST changes: -ISOVUE-M 300 61% 15ML VIAL As Ordered ONE; -LIDOCAINE 1% SDV 30ML VIAL As Ordered ONE; -MIDAZOLAM INJ 2MG/2ML VIAL (J2250 PER 1MG) As Ordered ONE; -ONDANSETRON 4MG/2ML VIAL As Ordered ONE; -diphenhydrAMINE 50MG/ML VIAL (J1200) As Ordered ONE; -fentaNYL 100 MCG/2 ML INJECTION (J3010) As Ordered ONE; -methylPREDNISolone SUSP 40MG/ML 1ML VIAL (DEPO MEDROL) As Ordered ONE
--- NOTE | 2020-07-24 02:48 | ECWPNPC ---
PATIENT NAME: FRANCK GUTIÉRREZ : 1960 GENDER: FEMALE VISIT DATE: 07/19/2020 DISCHARGE DATE: 07/19/20 1204 VISIT LOCKED DATE TIME: PHYSICIAN: DEYSI YO RESOURCE: DEYSI YO REASON FOR APPOINTMENT 1. POST LUMBAR EPIDURAL STEROID INJECTION WITH IV SEDATION HISTORY OF PRESENT ILLNESS GENERAL: HPI 59-YEAR-OLD FEMALE IN FOR POST LUMBAR EPIDURAL STEROID INJECTION FOLLOW-UP. PATIENT FEELS THE PROCEDURE WAS UNSUCCESSFUL. SHE RATES HER PAIN CURRENTLY AT AN 8 OUT OF 10 AND DESCRIBES IT ACHING, BURNING PAIN, STABBING, TENDER, AND SORE.. -. FALL RISK SCREENING: SCREENING : NO FALLS REPORTED IN THE LAST YEAR. PAIN SCREENING: PATIENT HAS A COMPLAINT OF ACUTE OR CHRONIC PAIN :YES LOCATION OF PAIN:LOW BACK INTENSITY OF PAIN (SCALE OF 1 TO 10):8 WHAT DOES YOUR PAIN FEEL LIKE:ACHING, BURNING, CONTINOUS, SHARP, STABBING, TENDER, SORE DURATION:CONTINOUS, CONSTANT, AWAKENS FROM SLEEP PAIN IS INCREASED BY:ACTIVITIES, PROLONGED STANDING PAIN IS DECREASED BY:OTHERS NOTHING HELPS THE PAIN NURSING NOTE: -. PAIN CENTER INTAKE QUESTIONS: DO YOU HAVE A HISTORY OF MRSA? :NO DO YOU TAKE A BLOOD THINNERS? :NO DO YOU HAVE ANY BLEEDING DISORDERS? :NO ANY NEW NUMBNESS OR WEAKNESS IN YOUR LEGS OR ARMS? :YES RIGHT LEG ANY PACEMAKER,DEFIBRILLATOR, OR DORSAL COLUMN STIMULATOR? :NO DO YOU HAVE ANY RASHES OR OPEN SORES? :NO ARE YOU ALLERGIC TO IV DYE? :NO ARE YOU DIABETIC? :YES TYPE 2 ANY NEW PROBLEMS WITH YOUR MEDICATIONS? :NO HAVE YOU RECEIVED A VACCINE IN THE PAST 30 DAYS? :NO 2ND COVID 06/07/2020 DO YOU PLAN TO RECEIVE A VACCINE IN THE NEXT 21 DAYS? :NO DO YOU NEED ANY PRESCRIPTION? :NO DO YOU TAKE ANY IMMUNOSUPPRESSIVE MEDICATIONS? :NO CURRENT MEDICATIONS TAKING ZOFRAN 4 MG TABLET 1 TABLET ORALLY ONCE A DAY TAKING LISINOPRIL 10 MG TABLET 1 TABLET ORALLY ONCE A DAY TAKING ATORVASTATIN CALCIUM 20 MG TABLET 1 TABLET ORALLY ONCE A DAY TAKING LISINOPRIL 5 MG TABLET TAKE ONE TABLET BY MOUTH EVERY DAY ORAL TAKING METFORMIN HCL ER 500 MG TABLET EXTENDED RELEASE 24 HOUR TAKE THREE TABLETS BY MOUTH EVERY DAY ORAL TAKING METOCLOPRAMIDE HCL 5 MG TABLET TAKE ONE TABLET BY MOUTH THREE TIMES A DAY TAKE 30 MINUTES PRIOR TO MEALS ORAL TAKING OYSTER SHELL CALCIUM/D 500-200 MG-UNIT TABLET TAKE TWO TABLETS BY MOUTH EVERY DAY ORAL TAKING PANTOPRAZOLE SODIUM 40 MG TABLET DELAYED RELEASE TAKE ONE TABLET BY MOUTH EVERY DAY BEFORE FIRST MEAL OF THE DAY ORAL TAKING PAROXETINE HCL 40 MG TABLET TAKE ONE TABLET BY MOUTH EVERY DAY ORAL TAKING VITAMIN B-12 1000 MCG TABLET TAKE ONE TABLET BY MOUTH EVERY DAY ORAL TAKING GABAPENTIN 400 MG CAPSULE TAKE ONE CAPSULE BY MOUTH THREE TIMES A DAY ORAL TAKING METHYLPHENIDATE HCL 10 MG TABLET (SCHEDULE II DRUG) TAKE ONE TABLET BY MOUTH EVERY MORNING AND ONE TABLET EARLY AFTERNOON MAXIMUM DAILY DOSE TWO TABLETS ORAL TAKING ARNUITY ELLIPTA 100 MCG/ACT AEROSOL POWDER BREATH ACTIVATED USE 1 INHALATION ONCE DAILY INHALATION TAKING SENNA 8.6 MG TABLET TAKE TWO TABLETS BY MOUTH EVERY DAY AT BEDTIME STOP IF HAVING DIARRHEA ORAL TAKING FREESTYLE LITE TEST - STRIP TEST GLUCOSE THREE TIMES A DAY IN VITRO TAKING ZONISAMIDE 50 MG CAPSULE 1 CAPSULE ORALLY TWICE A DAY TAKING TYLENOL 8 HOUR 650 MG TABLET EXTENDED RELEASE 2 TABLETS NEEDED ORALLY EVERY 8 HRS TAKING LORATADINE 10 MG TABLET 1 TABLET ORALLY ONCE A DAY TAKING VITAMIN D (ERGOCALCIFEROL) 50 MCG (2000 UT) CAPSULE 1 CAPSULE ORALLY ONCE A DAY TAKING LORAZEPAM 0.5 MG TABLET 1 TABLET AT BEDTIME NEEDED ORALLY ONCE A DAY TAKING DUONEB 0.5-2.5 (3) MG/3ML SOLUTION 3 ML NEEDED INHALATION EVERY 6 HRS TAKING DICLOFENAC SODIUM 1 % GEL DIRECTED EXTERNALLY TAKING EPIPEN 0.3 MG/0.3ML (1:1000) DEVICE DIRECTED INTRAMUSCULAR NOT-TAKING NEURONTIN 400 MG CAPSULE 1 CAPSULE ORALLY ONCE A DAY MEDICATION LIST REVIEWED AND RECONCILED WITH THE PATIENT PAST MEDICAL HISTORY PAIN IN FOREARM HAND PAIN LUMBOSACRAL RADICULOPATHY CAPAL TUNNEL SYNDROME CHRONIC LOW BACK PAIN MIRGAINE WITHOUT AURA HYPERTENSION TYPE DIABETES ASTHMA COPD MIRGANIE WITH RS PANIC DISORDER ALLERGIES RED DYE : DYSPNEA - SIDE EFFECTS ASPIRN: DYSPNEA - SIDE EFFECTS CODINE: DYSPNEA - SIDE EFFECTS PENICILLIN: DYSPNEA - SIDE EFFECTS OXYCODONE: NAUSEA/VOMITING - SIDE EFFECTS BEES: ANAPHYLAXIS - ALLERGY SOCIAL HISTORY GENERAL: TOBACCO USE ARE YOU A:NONSMOKER LATEX QUESTIONNAIRE LATEX ALLERGY : HAVE YOU EVER DEVELOPED ANY TYPE OF REACTION AFTER HANDLING LATEX PRODUCTS SUCH RUBBER GLOVES, CONDOMS, DIAPHRAGMS, BALLOONS, SOCKS, OR UNDERWEAR?NO LATEX ALLERGY : HAVE YOU EVER DEVELOPED ANY TYPE OF REACTION DURING OR AFTER DENTAL APPOINTMENT, VAGINAL/RECTAL EXAMINATION, SURGICAL PROCEDURE, OR ANY OTHER EXPOSURE?NO LATEX RISK : HAVE YOU EVER HAD ANY DIFFICULTY BREATHING OR HIVES AFTER EATING OR HANDLING ANY FRUITS, OR VEGETABLES; SUCH KIWI, BANANAS, STONE FRUITS, OR CHESTNUTSNO LATEX RISK : DO YOU HAVE A PREVIOUS PERSONAL HISTORY OF MORE THAN NINE SURGERIES, SPINA BIFIDA, OR REPEATED CATHERIZATIONS? NO LATEX RISK : ARE YOU FREQUENTLY EXPOSED TO LATEX PRODUCTS IN YOUR OCCUPATION?YES DATE ASKED : 07/19/2020 ALCOHOL USE: NO. RECREATIONAL DRUG USE DRUG USE?NO LANGUAGE LANGUAGES SPOKEN:PORTUGUESE EDUCATION LEVEL OF EDUCATION:PROFESSIONAL SCHOOLS/MASTERS/PHD LEARNING BARRIERS / SPECIAL NEEDS CHANGE FROM LAST VISIT?NO BARRIERS TO LEARNING?NO HEARING IMPAIRED?NO VISION IMPAIRED?YES :CORRECTIVE LENSES COGNITIVELY IMPAIRED?NO READINESS TO LEARN?YES LEARNING PREFERENCES?NO LEARNING CAPABILITIES PRESENT?YES EMOTIONAL BARRIERS?NO SPECIAL DEVICES?NO EXECUTIVE PERSONAL ASSISTANT NEEDED?NO DOMESTIC VIOLENCE DO YOU FEEL SAFE IN YOUR ENVIRONMENT?YES REVIEW OF SYSTEMS CONSTITUTIONAL: ANY RECENT FEVER NO . CHILLS NO . WEIGHT CHANGE OF UNKNOWN REASONS NO . GASTROENTEROLOGY: NEW UNEXPLAINABLE CHANGES IN BOWEL CONTROL NO . CONSTIPATION NO . GENITOURINARY: ANY NEW CHANGE IN BLADDER CONTROL? NO . NEUROLOGY: NEW ONSET DIZZINESS OR NEUROLOGICAL CHANGES NOT MENTIONED NO . NEW NUMBNESS OR PAIN PATTERNS NOT MENTIONED AND PERTINENT TO TODAY'S VISIT NO . CARDIOLOGY: NEW CHEST PRESSURE NO . PATIENT DENIES NO . RESPIRATORY: UNEXPLAINABLE COUGH NO . NEW SHORTNESS OF BREATH NO . VITAL SIGNS WT 155.2 LBS, HT 5'0, BMI 30.31 INDEX, BP 126/60 MM HG, HR 72 /MIN, RR 18 /MIN, TEMP 95.4 F, OXYGEN SAT % 97%, SAFE IN ENV? (Y/N) YES, REVIEWED BY: YANDY PORTILLO MA. EXAMINATION GENERAL EXAMINATION: GENERALNO ACUTE DISTRESS, WELL NOURISHED AND HYDRATED. PSYCHAPPROPRIATE MOOD AND AFFECT . LUNGS:CLEAR TO AUSCULTATION BILATERALLY, NO WHEEZES, RHONCHI, RALES. HEART:NO MURMURS, REGULAR RATE AND RHYTHM. ASSESSMENTS OTHER CHRONIC PAIN - G89.29 (PRIMARY) INTERVERTEBRAL DISC DISORDERS WITH RADICULOPATHY, LUMBAR REGION - M51.16 (PRIMARY) TREATMENT OTHER CHRONIC PAIN START LYRICA CAPSULE, 75 MG, 1 CAPSULE, ORALLY, TWICE DAILY, 30 DAYS, 60 PAIN PROCEDURE LOGDATE OF UEVPSWSIO07/10/2021PROCEDURE:LUMBAR EPIDURAL STEROID INJECTION WITH IV SEDATIONAMOUNT OF PRE SEDATEFENTANYL CITRATE 25MCG; VERSED 1MG; ZOFRAN 4MG/2ML IV; BENADRYL 25MGRESULT:UNSUCCESSFUL INTERVERTEBRAL DISC DISORDERS WITH RADICULOPATHY, LUMBAR REGION NOTES: 59-YEAR-OLD FEMALE IN FOR POST LUMBAR EPIDURAL STEROID INJECTION FOLLOW-UP. DISCUSSED FURTHER PROCEDURES WITH PATIENT AND AT THIS TIME SHE DECLINES THEM. GIVEN PRESENTING SYMPTOMS RECOMMEND STARTING LYRICA WITH FOLLOW-UP IN ONE MONTH TO DETERMINE EFFICACY OF TREATMENT. PATIENT HAS EXPRESSED UNDERSTANDING OF AND WAS IN AGREEMENT WITH TREATMENT PLAN. GIVEN TIME TO ASK QUESTIONS AND EXPRESS CONCERNS. [employer] REVIEWED AND DEMONSTRATES COMPLLIANCE. (REF #[id number] ). OTHERS NOTES: PAT DONE 06/28/20 EM,PREGABALIN MATERIAL WAS PRINTED AND PROVIDED TO PATIENT. PATIENT VERBALIZED AN UNDERSTANDING. RIANA PORTILLO MA. PROCEDURE CODES FA211 ESTABILISHED PATIENT [facility] FACILITY CHARGE DISPOSITION & COMMUNICATION FOLLOW UP 4 WEEKS (REASON: NEW MED) ELECTRONICALLY SIGNED BY DOMITILA GONZALES ON 07/23/2020 AT 09:30 AM EDT DISCLAIMER : THIS IS A VISIT SUMMARY EXTRACTED FROM THE [employer] CHART. IT IS NOT A COPY OF THE [employer] PROGRESS NOTE. AKIKO
== END ==
LOC: M PAIN 11:30
PROVIDERS: ATTEND Family Medicine
DX: M51.16 Intervertebral disc disorders with radiculopathy, lumbar region (principal); G89.29 Other chronic pain; E11.9 Type 2 diabetes mellitus without complications; G43.909 Migraine, unspecified, not intractable, without status migrainosus; J44.9 Chronic obstructive pulmonary disease, unspecified; Z86.59 Personal history of other mental and behavioral disorders; Z88.0 Allergy status to penicillin; Z88.5 Allergy status to narcotic agent; Z88.6 Allergy status to analgesic agent; Z91.02 Food additives allergy status; Z91.030 Bee allergy status; Z79.51 Long term (current) use of inhaled steroids; Z79.84 Long term (current) use of oral hypoglycemic drugs; Z79.899 Other long term (current) drug therapy

== ENCOUNTER → 2020-08-19 | Outpatient (CLI) | payer OTHER ==
--- NOTE | 2020-08-23 03:26 | ECWPNPC ---
PATIENT NAME: FRANCK GUTIÉRREZ : 1960 GENDER: FEMALE VISIT DATE: 08/19/2020 DISCHARGE DATE: 08/19/20 1216 VISIT LOCKED DATE TIME: PHYSICIAN: DEYSI YO RESOURCE: DEYSI YO REASON FOR APPOINTMENT 1. NEW MED HISTORY OF PRESENT ILLNESS GENERAL: HPI 59-YEAR-OLD FEMALE IN FOR CHRONIC PAIN FOLLOW-UP. AT LAST CLINIC VISIT PATIENT WAS STARTED ON LYRICA AND SHE ADMITS TODAY THAT THIS WAS NOT BENEFICIAL. SHE RATES HER PAIN CURRENTLY AT A 9 OUT OF 10 AND DESCRIBES IT ACHING, BURNING, AND SHOOTING.. -. FALL RISK SCREENING: SCREENING : NO FALLS REPORTED IN THE LAST YEAR. PAIN SCREENING: PATIENT HAS A COMPLAINT OF ACUTE OR CHRONIC PAIN :YES LOCATION OF PAIN:LOW BACK, RIGHT HIP INTENSITY OF PAIN (SCALE OF 1 TO 10):9 WHAT DOES YOUR PAIN FEEL LIKE:ACHING, BURNING, SHOOTING DURATION:CONTINOUS, AWAKENS FROM SLEEP PAIN IS INCREASED BY:ACTIVITIES, PROLONGED STANDING PAIN IS DECREASED BY:OTHERS SITTING SIDEWAYS WITH FEET UNDERNEATH. NURSING NOTE: -. PAIN CENTER INTAKE QUESTIONS: DO YOU HAVE A HISTORY OF MRSA? :NO DO YOU TAKE A BLOOD THINNERS? :NO DO YOU HAVE ANY BLEEDING DISORDERS? :NO ANY NEW NUMBNESS OR WEAKNESS IN YOUR LEGS OR ARMS? :NO ANY PACEMAKER,DEFIBRILLATOR, OR DORSAL COLUMN STIMULATOR? :NO DO YOU HAVE ANY RASHES OR OPEN SORES? :NO ARE YOU ALLERGIC TO IV DYE? :NO ARE YOU DIABETIC? :YES TYPE 2 ANY NEW PROBLEMS WITH YOUR MEDICATIONS? :NO HAVE YOU RECEIVED A VACCINE IN THE PAST 30 DAYS? :NO 2ND COVID 06/07/2020 DO YOU PLAN TO RECEIVE A VACCINE IN THE NEXT 21 DAYS? :NO DO YOU NEED ANY PRESCRIPTION? :NO DO YOU TAKE ANY IMMUNOSUPPRESSIVE MEDICATIONS? :NO CURRENT MEDICATIONS TAKING ZOFRAN 4 MG TABLET 1 TABLET ORALLY ONCE A DAY TAKING LISINOPRIL 10 MG TABLET 1 TABLET ORALLY ONCE A DAY TAKING ATORVASTATIN CALCIUM 20 MG TABLET 1 TABLET ORALLY ONCE A DAY TAKING METFORMIN HCL ER 500 MG TABLET EXTENDED RELEASE 24 HOUR TAKE THREE TABLETS BY MOUTH EVERY DAY ORAL TAKING METOCLOPRAMIDE HCL 5 MG TABLET TAKE ONE TABLET BY MOUTH THREE TIMES A DAY TAKE 30 MINUTES PRIOR TO MEALS ORAL TAKING OYSTER SHELL CALCIUM/D 500-200 MG-UNIT TABLET TAKE TWO TABLETS BY MOUTH EVERY DAY ORAL TAKING PANTOPRAZOLE SODIUM 40 MG TABLET DELAYED RELEASE TAKE ONE TABLET BY MOUTH EVERY DAY BEFORE FIRST MEAL OF THE DAY ORAL TAKING PAROXETINE HCL 40 MG TABLET TAKE ONE TABLET BY MOUTH EVERY DAY ORAL TAKING VITAMIN B-12 1000 MCG TABLET TAKE ONE TABLET BY MOUTH EVERY DAY ORAL TAKING GABAPENTIN 400 MG CAPSULE TAKE ONE CAPSULE BY MOUTH THREE TIMES A DAY ORAL TAKING METHYLPHENIDATE HCL 10 MG TABLET (SCHEDULE II DRUG) TAKE ONE TABLET BY MOUTH EVERY MORNING AND ONE TABLET EARLY AFTERNOON MAXIMUM DAILY DOSE TWO TABLETS ORAL TAKING ARNUITY ELLIPTA 100 MCG/ACT AEROSOL POWDER BREATH ACTIVATED USE 1 INHALATION ONCE DAILY INHALATION TAKING SENNA 8.6 MG TABLET TAKE TWO TABLETS BY MOUTH EVERY DAY AT BEDTIME STOP IF HAVING DIARRHEA ORAL TAKING FREESTYLE LITE TEST - STRIP TEST GLUCOSE THREE TIMES A DAY IN VITRO TAKING ZONISAMIDE 50 MG CAPSULE 1 CAPSULE ORALLY TWICE A DAY TAKING TYLENOL 8 HOUR 650 MG TABLET EXTENDED RELEASE 2 TABLETS NEEDED ORALLY EVERY 8 HRS TAKING LORATADINE 10 MG TABLET 1 TABLET ORALLY ONCE A DAY TAKING VITAMIN D (ERGOCALCIFEROL) 50 MCG (2000 UT) CAPSULE 1 CAPSULE ORALLY ONCE A DAY TAKING LORAZEPAM 0.5 MG TABLET 1 TABLET AT BEDTIME NEEDED ORALLY ONCE A DAY TAKING DUONEB 0.5-2.5 (3) MG/3ML SOLUTION 3 ML NEEDED INHALATION EVERY 6 HRS TAKING DICLOFENAC SODIUM 1 % GEL DIRECTED EXTERNALLY TAKING EPIPEN 0.3 MG/0.3ML (1:1000) DEVICE DIRECTED INTRAMUSCULAR TAKING LYRICA 75 MG CAPSULE 1 CAPSULE ORALLY TWICE DAILY NOT-TAKING LISINOPRIL 5 MG TABLET TAKE ONE TABLET BY MOUTH EVERY DAY ORAL UNKNOWN NEURONTIN 400 MG CAPSULE 1 CAPSULE ORALLY ONCE A DAY MEDICATION LIST REVIEWED AND RECONCILED WITH THE PATIENT PAST MEDICAL HISTORY PAIN IN FOREARM HAND PAIN LUMBOSACRAL RADICULOPATHY CAPAL TUNNEL SYNDROME CHRONIC LOW BACK PAIN MIRGAINE WITHOUT AURA HYPERTENSION TYPE DIABETES ASTHMA COPD MIRGANIE WITH RS PANIC DISORDER ALLERGIES RED DYE : DYSPNEA - SIDE EFFECTS ASPIRN: DYSPNEA - SIDE EFFECTS CODINE: DYSPNEA - SIDE EFFECTS PENICILLIN: DYSPNEA - SIDE EFFECTS OXYCODONE: NAUSEA/VOMITING - SIDE EFFECTS BEES: ANAPHYLAXIS - ALLERGY SOCIAL HISTORY GENERAL: TOBACCO USE ARE YOU A:NONSMOKER LATEX QUESTIONNAIRE LATEX ALLERGY : HAVE YOU EVER DEVELOPED ANY TYPE OF REACTION AFTER HANDLING LATEX PRODUCTS SUCH RUBBER GLOVES, CONDOMS, DIAPHRAGMS, BALLOONS, SOCKS, OR UNDERWEAR?NO LATEX ALLERGY : HAVE YOU EVER DEVELOPED ANY TYPE OF REACTION DURING OR AFTER DENTAL APPOINTMENT, VAGINAL/RECTAL EXAMINATION, SURGICAL PROCEDURE, OR ANY OTHER EXPOSURE?NO LATEX RISK : HAVE YOU EVER HAD ANY DIFFICULTY BREATHING OR HIVES AFTER EATING OR HANDLING ANY FRUITS, OR VEGETABLES; SUCH KIWI, BANANAS, STONE FRUITS, OR CHESTNUTSNO LATEX RISK : DO YOU HAVE A PREVIOUS PERSONAL HISTORY OF MORE THAN NINE SURGERIES, SPINA BIFIDA, OR REPEATED CATHERIZATIONS? NO LATEX RISK : ARE YOU FREQUENTLY EXPOSED TO LATEX PRODUCTS IN YOUR OCCUPATION?YES DATE ASKED : 08/19/2020 ALCOHOL USE: NO. RECREATIONAL DRUG USE DRUG USE?NO LANGUAGE LANGUAGES SPOKEN:BELARUSIAN EDUCATION LEVEL OF EDUCATION:PROFESSIONAL SCHOOLS/MASTERS/PHD LEARNING BARRIERS / SPECIAL NEEDS CHANGE FROM LAST VISIT?NO BARRIERS TO LEARNING?NO HEARING IMPAIRED?NO VISION IMPAIRED?YES :CORRECTIVE LENSES COGNITIVELY IMPAIRED?NO READINESS TO LEARN?YES LEARNING PREFERENCES?NO LEARNING CAPABILITIES PRESENT?YES EMOTIONAL BARRIERS?NO SPECIAL DEVICES?NO METER CHANGES RECORDS CLERK NEEDED?NO DOMESTIC VIOLENCE DO YOU FEEL SAFE IN YOUR ENVIRONMENT?YES REVIEW OF SYSTEMS CONSTITUTIONAL: ANY RECENT FEVER NO . CHILLS NO . WEIGHT CHANGE OF UNKNOWN REASONS NO . GASTROENTEROLOGY: NEW UNEXPLAINABLE CHANGES IN BOWEL CONTROL NO . CONSTIPATION NO . GENITOURINARY: ANY NEW CHANGE IN BLADDER CONTROL? NO . NEUROLOGY: NEW ONSET DIZZINESS OR NEUROLOGICAL CHANGES NOT MENTIONED NO . NEW NUMBNESS OR PAIN PATTERNS NOT MENTIONED AND PERTINENT TO TODAY'S VISIT NO . CARDIOLOGY: NEW CHEST PRESSURE NO . PATIENT DENIES NO . RESPIRATORY: UNEXPLAINABLE COUGH NO . NEW SHORTNESS OF BREATH NO . VITAL SIGNS WT 159.2 LBS, HT 5'0, BMI 31.09 INDEX, BP 114/74 MM HG, HR 84 /MIN, RR 16 /MIN, TEMP 98.3 F, OXYGEN SAT % 95%, SAFE IN ENV? (Y/N) YES, NA INITIALS RI 11:33, REVIEWED BY: YANDY PORTILLO MA. EXAMINATION GENERAL EXAMINATION: GENERALNO ACUTE DISTRESS, WELL NOURISHED AND HYDRATED. PSYCHAPPROPRIATE MOOD AND AFFECT . LUNGS:CLEAR TO AUSCULTATION BILATERALLY, NO WHEEZES, RHONCHI, RALES. HEART:NO MURMURS, REGULAR RATE AND RHYTHM. ASSESSMENTS INTERVERTEBRAL DISC DISORDERS WITH RADICULOPATHY, LUMBAR REGION - M51.16 (PRIMARY) TREATMENT INTERVERTEBRAL DISC DISORDERS WITH RADICULOPATHY, LUMBAR REGION NOTES: 59 YEAR OLD FEMALE IN FOR CHRONIC PAIN FOLLOW UP. GIVEN PRESENTING SYMPTOMS RECOMMEND STARTING TRAMADOL 50MG DAILY NEEDED FOR PAIN WITH FOLLOW UP IN 1 MONTH TO DETERMINE EFFICACY OF TREATMENT. PATIENT HAS EXPRESSED UNDERSTANDING OF AND WAS IN AGREEMENT WITH TREATMENT PLAN. GIVEN TIME TO ASK QUESTIONS AND EXPRESS CONCERNS. ISTOP REGISTRY REVIEWED AND DEMONSTRATES COMPLLIANCE. (REF #[id number] ). OTHERS START TRAMADOL HCL TABLET, 50 MG, 1 TABLET NEEDED, ORALLY, ONCE A DAY PRN PAIN, 30 DAYS, 30 NOTES: PAT DONE 06/28/20 EM,PREGABALIN MATERIAL WAS PRINTED AND PROVIDED TO PATIENT. PATIENT VERBALIZED AN UNDERSTANDING. RIANA PORTILLO MA. CLINICAL NOTES: TRAMADOL INFORMATION PRINTED AND PROVIDED TO PATIENT. PATIENT VERBALIZED AN UNDERSTANDING. RIANA PORTILLO MA. PROCEDURE CODES FA211 ESTABILISHED PATIENT [facility] CHARGE DISPOSITION & COMMUNICATION FOLLOW UP 4 WEEKS (REASON: NEW MED) ELECTRONICALLY SIGNED BY DOMITILA GONZALES ON 08/22/2020 AT 08:08 AM EDT DISCLAIMER : THIS IS A VISIT SUMMARY EXTRACTED FROM THE [employer] CHART. IT IS NOT A COPY OF THE [employer] PROGRESS NOTE. MTDD
== END ==
LOC: M PAIN 11:30
PROVIDERS: ATTEND Family Medicine
DX: M51.16 Intervertebral disc disorders with radiculopathy, lumbar region (principal); G43.909 Migraine, unspecified, not intractable, without status migrainosus; I10 Essential (primary) hypertension; E11.9 Type 2 diabetes mellitus without complications; J45.909 Unspecified asthma, uncomplicated; J44.9 Chronic obstructive pulmonary disease, unspecified; F41.0 Panic disorder [episodic paroxysmal anxiety]; Z79.84 Long term (current) use of oral hypoglycemic drugs; Z79.899 Other long term (current) drug therapy; Z88.5 Allergy status to narcotic agent; Z88.6 Allergy status to analgesic agent; Z88.0 Allergy status to penicillin; Z91.030 Bee allergy status; Z91.048 Other nonmedicinal substance allergy status

== ENCOUNTER → 2020-09-16 | Outpatient (CLI) | payer OTHER ==
--- NOTE | 2020-09-27 02:33 | ECWPNPC ---
PATIENT NAME: FRANCK GUTIÉRREZ : 1960 GENDER: FEMALE VISIT DATE: 09/16/2020 DISCHARGE DATE: 09/16/20 1434 VISIT LOCKED DATE TIME: PHYSICIAN: DEYSI YO RESOURCE: DEYSI YO REASON FOR APPOINTMENT 1. NEW MED HISTORY OF PRESENT ILLNESS GENERAL: HPI 59-YEAR-OLD FEMALE IN FOR CHRONIC PAIN FOLLOW-UP. AT LAST CLINIC VISIT PATIENT WAS STARTED ON TRAMADOL AND SHE ADMITS THAT THIS WAS BENEFICIAL HOWEVER IT DOES NOT HELP HER PAIN DURING THE DAY. SHE RATES HER PAIN CURRENTLY AT AN 8 OUT OF 10 AND DESCRIBES IT BURNING, AND SHOOTING.. -. FALL RISK SCREENING: SCREENING : NO FALLS REPORTED IN THE LAST YEAR. PAIN SCREENING: PATIENT HAS A COMPLAINT OF ACUTE OR CHRONIC PAIN :YES LOCATION OF PAIN:LOW BACK, RIGHT HIP INTENSITY OF PAIN (SCALE OF 1 TO 10):8 WHAT DOES YOUR PAIN FEEL LIKE:BURNING, SHOOTING, OTHER PULSING AND SHOOTING IN BACK. DURATION:INTERMITTENT, AWAKENS FROM SLEEP PAIN IS INCREASED BY:ACTIVITIES, PROLONGED STANDING PAIN IS DECREASED BY:USE OF PAIN MEDICATIONS, SITTING NURSING NOTE: -. PAIN CENTER INTAKE QUESTIONS: DO YOU HAVE A HISTORY OF MRSA? :NO DO YOU TAKE A BLOOD THINNERS? :NO DO YOU HAVE ANY BLEEDING DISORDERS? :NO ANY NEW NUMBNESS OR WEAKNESS IN YOUR LEGS OR ARMS? :NO ANY PACEMAKER,DEFIBRILLATOR, OR DORSAL COLUMN STIMULATOR? :NO DO YOU HAVE ANY RASHES OR OPEN SORES? :NO ARE YOU ALLERGIC TO IV DYE? :NO ARE YOU DIABETIC? :YES TYPE 2 ANY NEW PROBLEMS WITH YOUR MEDICATIONS? :NO HAVE YOU RECEIVED A VACCINE IN THE PAST 30 DAYS? :NO 2ND COVID 06/07/2020 DO YOU PLAN TO RECEIVE A VACCINE IN THE NEXT 21 DAYS? :NO DO YOU NEED ANY PRESCRIPTION? :YES TRAMADOL DO YOU TAKE ANY IMMUNOSUPPRESSIVE MEDICATIONS? :NO CURRENT MEDICATIONS TAKING ZOFRAN 4 MG TABLET 1 TABLET ORALLY ONCE A DAY TAKING LISINOPRIL 10 MG TABLET 1 TABLET ORALLY ONCE A DAY TAKING ATORVASTATIN CALCIUM 20 MG TABLET 1 TABLET ORALLY ONCE A DAY TAKING METFORMIN HCL ER 500 MG TABLET EXTENDED RELEASE 24 HOUR TAKE THREE TABLETS BY MOUTH EVERY DAY ORAL TAKING METOCLOPRAMIDE HCL 5 MG TABLET TAKE ONE TABLET BY MOUTH THREE TIMES A DAY TAKE 30 MINUTES PRIOR TO MEALS ORAL TAKING OYSTER SHELL CALCIUM/D 500-200 MG-UNIT TABLET TAKE TWO TABLETS BY MOUTH EVERY DAY ORAL TAKING PANTOPRAZOLE SODIUM 40 MG TABLET DELAYED RELEASE TAKE ONE TABLET BY MOUTH EVERY DAY BEFORE FIRST MEAL OF THE DAY ORAL TAKING PAROXETINE HCL 40 MG TABLET TAKE ONE TABLET BY MOUTH EVERY DAY ORAL TAKING VITAMIN B-12 1000 MCG TABLET TAKE ONE TABLET BY MOUTH EVERY DAY ORAL TAKING GABAPENTIN 400 MG CAPSULE TAKE ONE CAPSULE BY MOUTH THREE TIMES A DAY ORAL TAKING METHYLPHENIDATE HCL 10 MG TABLET (SCHEDULE II DRUG) TAKE ONE TABLET BY MOUTH EVERY MORNING AND ONE TABLET EARLY AFTERNOON MAXIMUM DAILY DOSE TWO TABLETS ORAL TAKING ARNUITY ELLIPTA 100 MCG/ACT AEROSOL POWDER BREATH ACTIVATED USE 1 INHALATION ONCE DAILY INHALATION TAKING SENNA 8.6 MG TABLET TAKE TWO TABLETS BY MOUTH EVERY DAY AT BEDTIME STOP IF HAVING DIARRHEA ORAL TAKING FREESTYLE LITE TEST - STRIP TEST GLUCOSE THREE TIMES A DAY IN VITRO TAKING ZONISAMIDE 50 MG CAPSULE 1 CAPSULE ORALLY TWICE A DAY TAKING TYLENOL 8 HOUR 650 MG TABLET EXTENDED RELEASE 2 TABLETS NEEDED ORALLY EVERY 8 HRS TAKING LORATADINE 10 MG TABLET 1 TABLET ORALLY ONCE A DAY TAKING VITAMIN D (ERGOCALCIFEROL) 50 MCG (2000 UT) CAPSULE 1 CAPSULE ORALLY ONCE A DAY TAKING LORAZEPAM 0.5 MG TABLET 1 TABLET AT BEDTIME NEEDED ORALLY ONCE A DAY TAKING DUONEB 0.5-2.5 (3) MG/3ML SOLUTION 3 ML NEEDED INHALATION EVERY 6 HRS TAKING DICLOFENAC SODIUM 1 % GEL DIRECTED EXTERNALLY TAKING EPIPEN 0.3 MG/0.3ML (1:1000) DEVICE DIRECTED INTRAMUSCULAR TAKING TRAMADOL HCL 50 MG TABLET 1 TABLET NEEDED ORALLY ONCE A DAY PRN PAIN NOT-TAKING LYRICA 75 MG CAPSULE 1 CAPSULE ORALLY TWICE DAILY NOT-TAKING LISINOPRIL 5 MG TABLET TAKE ONE TABLET BY MOUTH EVERY DAY ORAL NOT-TAKING NEURONTIN 400 MG CAPSULE 1 CAPSULE ORALLY ONCE A DAY, NOTES: DUPLICATE MEDICATION LIST REVIEWED AND RECONCILED WITH THE PATIENT PAST MEDICAL HISTORY PAIN IN FOREARM HAND PAIN LUMBOSACRAL RADICULOPATHY CAPAL TUNNEL SYNDROME CHRONIC LOW BACK PAIN MIRGAINE WITHOUT AURA HYPERTENSION TYPE DIABETES ASTHMA COPD MIRGANIE WITH RS PANIC DISORDER ALLERGIES RED DYE : DYSPNEA - SIDE EFFECTS ASPIRN: DYSPNEA - SIDE EFFECTS CODINE: DYSPNEA - SIDE EFFECTS PENICILLIN: DYSPNEA - SIDE EFFECTS OXYCODONE: NAUSEA/VOMITING - SIDE EFFECTS BEES: ANAPHYLAXIS - ALLERGY SOCIAL HISTORY GENERAL: TOBACCO USE ARE YOU A:NONSMOKER LATEX QUESTIONNAIRE LATEX ALLERGY : HAVE YOU EVER DEVELOPED ANY TYPE OF REACTION AFTER HANDLING LATEX PRODUCTS SUCH RUBBER GLOVES, CONDOMS, DIAPHRAGMS, BALLOONS, SOCKS, OR UNDERWEAR?NO LATEX ALLERGY : HAVE YOU EVER DEVELOPED ANY TYPE OF REACTION DURING OR AFTER DENTAL APPOINTMENT, VAGINAL/RECTAL EXAMINATION, SURGICAL PROCEDURE, OR ANY OTHER EXPOSURE?NO LATEX RISK : HAVE YOU EVER HAD ANY DIFFICULTY BREATHING OR HIVES AFTER EATING OR HANDLING ANY FRUITS, OR VEGETABLES; SUCH KIWI, BANANAS, STONE FRUITS, OR CHESTNUTSNO LATEX RISK : DO YOU HAVE A PREVIOUS PERSONAL HISTORY OF MORE THAN NINE SURGERIES, SPINA BIFIDA, OR REPEATED CATHERIZATIONS? NO LATEX RISK : ARE YOU FREQUENTLY EXPOSED TO LATEX PRODUCTS IN YOUR OCCUPATION?YES DATE ASKED : 09/16/2020 ALCOHOL USE: NO. 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 CHILLS NO . WEIGHT CHANGE OF UNKNOWN REASONS NO . GASTROENTEROLOGY: NEW UNEXPLAINABLE CHANGES IN BOWEL CONTROL NO . CONSTIPATION NO . GENITOURINARY: ANY NEW CHANGE IN BLADDER CONTROL? NO . NEUROLOGY: NEW ONSET DIZZINESS OR NEUROLOGICAL CHANGES NOT MENTIONED NO . NEW NUMBNESS OR PAIN PATTERNS NOT MENTIONED AND PERTINENT TO TODAY'S VISIT NO . CARDIOLOGY: NEW CHEST PRESSURE NO . PATIENT DENIES NO . RESPIRATORY: UNEXPLAINABLE COUGH NO . NEW SHORTNESS OF BREATH NO . VITAL SIGNS WT 157.8 LBS, HT 5'0, BMI 30.81 INDEX, BP 117/58 MM HG, HR 98 /MIN, RR 18 /MIN, TEMP 97.8 F, OXYGEN SAT % 94%, SAFE IN ENV? (Y/N) YES, NA INITIALS VA 14:14, REVIEWED BY: YANDY PORTILLO MA. EXAMINATION GENERAL EXAMINATION: GENERALNO ACUTE DISTRESS, WELL NOURISHED AND HYDRATED. PSYCHAPPROPRIATE MOOD AND AFFECT . LUNGS:CLEAR TO AUSCULTATION BILATERALLY, NO WHEEZES, RHONCHI, RALES. HEART:NO MURMURS, REGULAR RATE AND RHYTHM. ASSESSMENTS INTERVERTEBRAL DISC DISORDERS WITH RADICULOPATHY, LUMBAR REGION - M51.16 (PRIMARY) TREATMENT INTERVERTEBRAL DISC DISORDERS WITH RADICULOPATHY, LUMBAR REGION NOTES: 59 YEAR OLD FEMALE IN FOR CHRONIC PAIN FOLLOW UP. GIVEN PRESENTING SYMPTOMS RECOMMEND INCREASING TRAMADOL TO 50MG TWICE DAILY NEEDED FOR PAIN WITH FOLLOW UP IN 2 MONTHS TO DETERMINE EFFICACY OF TREATMENT. PATIENT HAS EXPRESSED UNDERSTANDING OF AND WAS IN AGREEMENT WITH TREATMENT PLAN. GIVEN TIME TO ASK QUESTIONS AND EXPRESS CONCERNS. ISTOP REGISTRY REVIEWED AND DEMONSTRATES COMPLLIANCE. (REF # ). PROCEDURE CODES FA211 ESTABILISHED PATIENT [facility] CHARGE DISPOSITION & COMMUNICATION FOLLOW UP 2 MONTHS (REASON: MEDICATION INCREASE) ELECTRONICALLY SIGNED BY DOMITILA GONZALES ON 09/26/2020 AT 09:45 AM EDT DISCLAIMER : THIS IS A VISIT SUMMARY EXTRACTED FROM THE [employer] CHART. IT IS NOT A COPY OF THE [employer] PROGRESS NOTE. AKIKO
== END ==
LOC: M PAIN 14:30
PROVIDERS: ATTEND Family Medicine
DX: M51.16 Intervertebral disc disorders with radiculopathy, lumbar region (principal); G43.909 Migraine, unspecified, not intractable, without status migrainosus; I10 Essential (primary) hypertension; E11.9 Type 2 diabetes mellitus without complications; J45.909 Unspecified asthma, uncomplicated; J44.9 Chronic obstructive pulmonary disease, unspecified; F41.0 Panic disorder [episodic paroxysmal anxiety]; Z79.84 Long term (current) use of oral hypoglycemic drugs; Z79.891 Long term (current) use of opiate analgesic; Z79.899 Other long term (current) drug therapy; Z88.6 Allergy status to analgesic agent; Z88.5 Allergy status to narcotic agent; Z88.0 Allergy status to penicillin; Z91.048 Other nonmedicinal substance allergy status; Z91.030 Bee allergy status

== ENCOUNTER → 2020-11-29 | Outpatient (CLI) | payer OTHER | LOC: M PAIN 14:15 | PROVIDERS: ATTEND Anesthesiology | DX: M51.16 Intervertebral disc disorders with radiculopathy, lumbar region (principal); M48.062 Spinal stenosis, lumbar region with neurogenic claudication; E11.9 Type 2 diabetes mellitus without complications; G43.909 Migraine, unspecified, not intractable, without status migrainosus; I10 Essential (primary) hypertension; J45.909 Unspecified asthma, uncomplicated; J44.9 Chronic obstructive pulmonary disease, unspecified; F41.0 Panic disorder [episodic paroxysmal anxiety]; Z79.891 Long term (current) use of opiate analgesic; Z79.84 Long term (current) use of oral hypoglycemic drugs; Z79.899 Other long term (current) drug therapy; Z88.5 Allergy status to narcotic agent; Z88.6 Allergy status to analgesic agent; Z88.0 Allergy status to penicillin; Z91.048 Other nonmedicinal substance allergy status; Z91.030 Bee allergy status ==

== ENCOUNTER → 2021-02-06 | Outpatient (CLI) | payer OTHER | LOC: M LABSMTC 11:34 | PROVIDERS: ATTEND Anesthesiology | DX: Z11.52 Encounter for screening for COVID-19 (principal); Z20.822 Contact with and (suspected) exposure to COVID-19 ==

== ENCOUNTER → 2021-02-11 | Outpatient (CLI) | payer OTHER ==
[~2021-02-11] MED LIST changes: +BUPIVACAINE HCL 0.25% 30ML VIAL As Ordered ONE; +ISOVUE-M 300 61% 15ML VIAL As Ordered ONE; +LIDOCAINE 1% SDV 30ML VIAL As Ordered ONE; +MIDAZOLAM INJ 2MG/2ML VIAL (J2250 PER 1MG) As Ordered ONE; +ONDANSETRON 4MG/2ML VIAL As Ordered ONE; +dexameTHASONE 10MG/1ML VIAL PRES.FREE (J1100 PER 1MG) As Ordered ONE; +diphenhydrAMINE 50MG/ML VIAL (J1200) As Ordered ONE; +fentaNYL 100 MCG/2 ML INJECTION (J3010) As Ordered ONE
--- NOTE | 2021-02-11 17:22 | REP ---
INDICATION: RIGHT TRANSFORAMINAL EPIDURAL STEROID INJECTION L4-L5. COMPARISON: None. TECHNIQUE: Multiple C-arm views lumbar spine. FINDINGS: A needle is seen along the margin of the lumbar spine. Contrast is injected. IMPRESSION: 38 seconds fluoroscopy time utilized. <Electronically signed by Adis Deng > 02/11/21 0170
== END ==
LOC: M PAIN 13:00
PROVIDERS: ATTEND Anesthesiology
DX: M51.16 Intervertebral disc disorders with radiculopathy, lumbar region (principal); E11.9 Type 2 diabetes mellitus without complications; G43.909 Migraine, unspecified, not intractable, without status migrainosus; J44.9 Chronic obstructive pulmonary disease, unspecified; Z86.59 Personal history of other mental and behavioral disorders; Z88.0 Allergy status to penicillin; Z88.5 Allergy status to narcotic agent; Z88.6 Allergy status to analgesic agent; Z91.02 Food additives allergy status; Z91.030 Bee allergy status; E66.01 Morbid (severe) obesity due to excess calories; Z68.42 Body mass index [BMI] 45.0-49.9, adult; Z79.51 Long term (current) use of inhaled steroids; Z79.84 Long term (current) use of oral hypoglycemic drugs; Z79.899 Other long term (current) drug therapy
CPT/HCPCS: 64483; J1100; J1200; J2250; J2405; J3010; Q9967

== ENCOUNTER → 2021-04-24 | Outpatient (CLI) | payer OTHER ==
[~2021-04-24] MED LIST changes: -BUPIVACAINE HCL 0.25% 30ML VIAL As Ordered ONE; -ISOVUE-M 300 61% 15ML VIAL As Ordered ONE; -LIDOCAINE 1% SDV 30ML VIAL As Ordered ONE; -LISI-898 PO; +LISI5TAB11 PO; -MIDAZOLAM INJ 2MG/2ML VIAL (J2250 PER 1MG) As Ordered ONE; -ONDANSETRON 4MG/2ML VIAL As Ordered ONE; -dexameTHASONE 10MG/1ML VIAL PRES.FREE (J1100 PER 1MG) As Ordered ONE; -diphenhydrAMINE 50MG/ML VIAL (J1200) As Ordered ONE; -fentaNYL 100 MCG/2 ML INJECTION (J3010) As Ordered ONE
== END ==
LOC: M PAIN 15:00
PROVIDERS: ATTEND Nurse Practitioner Family
DX: M47.816 Spondylosis without myelopathy or radiculopathy, lumbar region (principal); M47.817 Spondylosis without myelopathy or radiculopathy, lumbosacral region; G43.909 Migraine, unspecified, not intractable, without status migrainosus; I10 Essential (primary) hypertension; E11.9 Type 2 diabetes mellitus without complications; F41.0 Panic disorder [episodic paroxysmal anxiety]; J45.909 Unspecified asthma, uncomplicated; Z79.891 Long term (current) use of opiate analgesic; Z79.899 Other long term (current) drug therapy; Z88.6 Allergy status to analgesic agent; Z88.5 Allergy status to narcotic agent; Z88.0 Allergy status to penicillin; Z91.030 Bee allergy status; Z91.048 Other nonmedicinal substance allergy status